=== PATIENT | male | born 1935 | race Asian ===

== ENCOUNTER 2018-09-06 15:27 | Inpatient (IN) | payer BC, MEDICAID ==
[~2018-09-06] VITALS: Ht 167.6 cm; Wt 68.5 kg
[2018-09-06] MEDS ORDERED: SODIUM CHLORIDE 0.9% 1L BAG IV* STA (15:29)
[2018-09-06] MEDS ORDERED: CEFEPIME 2GM/50 ML (PMX) 50 ML IVPB STA (15:29)
[2018-09-06] MEDS ORDERED: VANCOMYCIN 1 GM (PMX) 250 ML IVPB ONE (15:30)
[2018-09-06] MEDS ORDERED: ACETAMINOPHEN 650MG/20.3ML CUP NGT ONE (16:00)
--- NOTE | 2018-09-06 16:11 | ERD ---
ER Documentation Chief Complaint Chief Complaint PER SNF STAFF, ALOC X 3 DAYS. NORMALLY AAOX4. HPI 83-year-old male history of ventilator dependence, G-tube dependence who comes from intermediate facility for being more altered than normal. It is unknown what his actual baseline is. There is no family available. It appears that the patient has been possibly more altered from baseline for the past 48 hours per intermediate facility report. Remainder of HPI is limited. The patient is a low-grade fever and tachycardia. He is full code based on documentation provided. ROS Unable to obtain Medications Home Meds Reported Medications Acetazolamide* (Acetazolamide*) 250 Mg Tablet, 250 MG GTB BID, #60 TAB 09/06/18 Sodium Phosphate,Searcy-Dibasic (Enema Ready To Use) Unknown Strength Enema, 1 APPLIC RC Q2D, ENEMA 09/06/18 Bisacodyl (Dulcolax) 10 Mg Supp.rect, 10 MG RC DAILY, SUPP.RECT 09/06/18 Magnesium Hydroxide* (Milk Of Magnesia*) 400 Mg/5 Ml Oral.susp, 30 ML GTB DAILY, ML 09/06/18 Docusate Sodium* (Colace*) 100 Mg Capsule, 200 MG GTB DAILY, #30 CAP 09/06/18 Ferrous Sulfate* (Ferrous Sulfate*) 220 Mg/5 Ml Solution, 7.5 ML GTB DAILY, ML 09/06/18 Multivit &Minerals/Ferrous Fum (MULTIVITAMIN LIQUID) 9 Mg/15 Ml Liquid, 5 ML GTB DAILY 09/06/18 Cranberry Extract (Cranberry) 425 Mg Capsule, 425 MG GTB DAILY, CAP 09/06/18 Acetaminophen* (Acetaminophen*) 500 MG Extra Strength Tablet, 1000 MG GTB Q4H P RN for PAIN LEVEL 4-6/10, TAB 09/06/18 Acetaminophen* (Tylenol*) 325 Mg Tablet, 650 MG GTB PRN PRN for FOR TRACH TUBE CHANGE, TAB 09/06/18 Acetaminophen* (Tylenol*) 325 Mg Tablet, 650 MG GTB Q4H PRN for MILD PAIN LEVEL 1-3, TAB AND FEVER 101 AND ABOVE 09/06/18 Insulin Aspart* (Novolog Insulin Pen*) 100 Unit/Ml Soln, 0 SC .SLIDING SCALE AC, EA IF BS 150-199=1 UNIT,200-249=2 UNITS,250-299=3 UNITS,300-349=4 UNITS,349 AND >=5 UNITS AND CALL MD 09/06/18 Insulin Detemir (Levemir) 100 Unit/1 Ml Vial, 10 UNITS SQ QAM 09/06/18 Glucagon HCl (Glucagon HCl) 1 Mg Vial, 1 MG IJ NEEDED PRN for IF BS<40, VIAL 09/06/18 Ondansetron Hcl* (Zofran*) 4 Mg Tab, 4 MG GTB Q6H PRN for NAUSEA AND OR VOMITING, TAB 09/06/18 Sitagliptin* (Januvia*) 100 Mg Tablet, 100 MG GTB DAILY, #30 TAB 09/06/18 Pantoprazole* (Protonix*) 40 Mg Tablet.dr, 40 MG GTB QAM, TAB 09/06/18 Clonidine Hcl* (Clonidine Hcl*) 0.1 Mg Tab, 0.1 MG GTB Q8 PRN for FOR SBP>150, TAB 09/06/18 Metoprolol Tartrate* (Lopressor*) 50 Mg Tab, 50 MG GTB BID, #60 TAB HOLD IF SBP<110 OR HR<60 09/06/18 Atorvastatin Calcium (Atorvastatin Calcium) 10 Mg Tablet, 10 MG GTB QHS, #30 TAB 09/06/18 Prednisone* (Prednisone*) 10 Mg Tab, 10 MG GTB DAILY, TAB 09/06/18 Furosemide* (Furosemide*) 40 Mg Tablet, 40 MG GTB DAILY, TAB 09/06/18 Digoxin* (Digitek*) 125 Mcg Tablet, 0.125 MG GTB DAILY, TAB 09/06/18 Latanoprost (Xalatan) 2.5 Ml Drops, 1 DROP BOTH EYES QHS, #1 BOTTLE 09/06/18 Amlodipine Besylate* (Norvasc*) 10 Mg Tablet, 10 MG GTB DAILY, TAB HOLD IF SBP<110 OR HR<60 09/06/18 Allergies Allergies: Coded Allergies: No Known Allergy (Unverified , 09/06/18) PMhx/Soc History of Surgery: No Anesthesia Reaction: No Hx Neurological Disorder: No Hx Respiratory Disorders: Yes (COPD, TRACHEOSTOMY) Hx Cardiac Disorders: Yes (HTN) Hx Psychiatric Problems: No Hx Miscellaneous Medical Probl: Yes (CHRONIC KIDNEY DISEASE) Hx Alcohol Use: No Hx Substance Use: No Hx Tobacco Use: No Smoking Status: Never smoker Physical Exam Vitals Vital Signs Date Temp Pulse Resp B/P (MAP) Pulse Ox O2 O2 Flow FiO2 Time Delivery Rate 09/06/18 99.7 101 22 121/100 99 Trach 18:23 (107) Collar 09/06/18 100.3 101 22 121/100 99 Trach 17:49 (107) Collar 09/06/18 115 17 100 40 17:25 09/06/18 100.3 109 22 132/76 99 Trach 16:57 (94) Collar 09/06/18 100.3 16:14 09/06/18 115 23 99 40 15:41 09/06/18 100.3 115 22 102/51 99 15:39 (68) 09/06/18 100.3 115 22 102/51 99 Trach 15:39 (68) Collar Physical Exam General: No significant distress Head: Normocephalic, atraumatic. Eyes: Pupils equally reactive, EOM intact ENT: Dry mucous membranes, trach in good position Neck: Supple, no lymphadenopathy Respiratory: Upper airway sounds Cardiovascular: Tachycardia, no murmurs, rubs, or gallops Abdominal: Soft, non-tender, non-distended, no peritoneal signs : Deferred MSK: Limited movement of all 4 extremities, no bony abnormalities Neurologic: Limited exam, and encephalopathic, limited movement of all 4 extremities Skin: No rash, no significant breakdown Psych: Unable to assess Result Diagram: 09/06/18 1538 09/06/18 1537 Results 24 hrs Laboratory Tests Test 09/06/18 15:37 09/06/18 15:38 09/06/18 15:39 09/06/18 15:50 Prothrombin Time 12.2 Sec Prothrombin Time 1.0 Ratio INR International 0.89 Normalized Ratio Activated 37.3 Sec Partial Thromboplas t Time Sodium Level 138 mmol/L Potassium Level 5.1 mmol/L Chloride Level 104 mmol/L Carbon Dioxide 26 mmol/L Level Anion Gap 8 Blood Urea Nitrogen 56 mg/dl Creatinine 1.24 mg/dl Est Glomerular mL/min Filtrat Rate mL/min Glucose Level 159 mg/dl Calcium Level 8.7 mg/dl Total Bilirubin 0.3 mg/dl Direct Bilirubin 0.00 mg/dl Indirect Bilirubin 0.3 mg/dl Aspartate Amino 19 IU/L Transf (AST/SGOT) Alanine 22 IU/L Aminotransferase (A LT/SGPT) Alkaline 82 IU/L Phosphatase Troponin I 0.023 ng/ml Total Protein 7.0 g/dl Albumin 3.5 g/dl Globulin 3.50 g/dl Albumin/Globulin 1.00 Ratio White Blood Count 17.0 10^3/ul Red Blood Count 3.06 10^6/ul Hemoglobin 9.2 g/dl Hematocrit 29.4 % Mean Corpuscular 96.1 fl Volume Mean Corpuscular 30.1 pg Hemoglobin Mean Corpuscular 31.3 g/dl Hemoglobin Concent Red Cell 15.7 % Distribution Width Platelet Count 199 10^3/UL Mean Platelet 10.4 fl Volume Immature 0.800 % Granulocytes % Neutrophils % 77.8 % Lymphocytes % 10.1 % Monocytes % 9.7 % Eosinophils % 1.4 % Basophils % 0.2 % Nucleated Red Blood 0.0 /100WBC Cells % Immature 0.130 10^3/ul Granulocytes # Neutrophils # 13.2 10^3/ul Lymphocytes # 1.7 10^3/ul Monocytes # 1.7 10^3/ul Eosinophils # 0.2 10^3/ul Basophils # 0.0 10^3/ul Nucleated Red Blood 0.0 10^3/ul Cells # POC Venous Lactate 0.3 mmol/L Urine Color STRAW Urine Clarity CLEAR Urine pH 5.0 Urine Specific 1.005 [place] Urine Ketones NEGATIVE mg/dL Urine Nitrite NEGATIVE mg/dL Urine Bilirubin NEGATIVE mg/dL Urine Urobilinogen NEGATIVE mg/dL Urine Leukocyte 2+ Carrol/ul Esterase Urine Microscopic 1 /HPF RBC Urine Microscopic 12 /HPF WBC Urine Bacteria FEW /HPF Urine Yeast FEW /HPF (Budding) Urine Hemoglobin NEGATIVE mg/dL Urine Glucose NEGATIVE mg/dL Urine Total Protein NEGATIVE mg/dl Test 09/06/18 17:28 Lactic Acid Level 1.2 mmol/L Current Medications Medications Dose Sig/Malcolm Start Time Status Last (Trade) Ordered Route PRN Stop Time Admin Dose Reason Admin Sodium 2,520 ml BOLUS OVER 2 09/06/18 DC 09/06/18 Chloride HOURS STAT 15:29 09/06/18 15:55 (NS) IV* 15:31 Cefepime HCl 50 ml @ ONCE STAT 09/06/18 DC 09/06/18 100 mls/hr IVPB 15:29 09/06/18 15:56 15:58 Vancomycin 250 ml @ ONCE ONCE 09/06/18 DC 09/06/18 HCl 125 mls/hr IVPB 15:30 09/06/18 16:34 17:29 650 mg ONCE ONCE 09/06/18 DC 09/06/18 Acetaminophen NGT 16:00 09/06/18 16:14 (Tylenol 16:01 Liquid) Ondansetron 4 mg ER BRIDGE 09/06/18 HCl (Zofran PRN IV 20:00 09/07/18 Inj) NAUSEA/VOMITI 19:59 NG 650 mg ER BRIDGE 09/06/18 Acetaminophen PRN PO 20:00 09/07/18 (Tylenol .MILD PAIN 19:59 Tab) 1-3 OR TEMP Procedures/MDM EKG, MONITORS, & DIAGNOSTIC IMAGING: EKG: I reviewed and interpreted a 12-lead EKG. Rhythm: Sinus tachycardia ST Changes: No contiguous ST segment elevations T waves: No contiguous T wave inversions Impression: Sinus tachycardia Chest x-ray: I reviewed and interpreted a 1 view of the chest Mediastinum: No enlargement Cardiac silhouette: No cardiomegaly Airspace: Possible right lower lobe infiltrate Bones: No evidence of fracture CT brain: PENDING CT AP PENDING LAB INTERPRETATION: I reviewed the laboratory testing and it shows WBC elevation concerning for infection MEDICAL DECISION MAKING: Patient presents with subacute altered mental status, low-grade fever and tachycardia raising the concern for infectious process. Extremely broad differential exists but strongest concern is for possible ventilator associated pneumonia versus urinary tract infection. Patient without signs or symptoms concerning for central nervous system infection. Code sepsis was initiated. ER COURSE: * Blood cultures prior to broad-spectrum antibiotics, 30 cc/kg bolus of fluid. * Patient placed on his regular ventilator settings. * The patient's vital signs have stabilized. No indication for central line or pressors. CT imaging has been delayed because of procedure on a separate patient. * CT will be followed by the oncoming ER provider as well as the inpatient team. CONSULTATION: None DISPOSITION PLAN: Accepting care team and consultations: I discussed the current laboratory data, diagnostic imaging and emergency care provided. [facility] Admitting team indication: Insurance directed Sepsis Documentation: Patient's infectious symptoms have not stabilized and the patient is at risk of rapid decompensation. The patient will be admitted for careful hydration, antibiotic therapy, and infectious source control. SEVERE SEPSIS CRITERIA: Infectious source: Healthcare associated pneumonia End organ damage indicated by: Altered mental status SEPSIS MANAGEMENT Time of recognition of sepsis: Upon MD assessment. Time of recognition of severe sepsis: Upon MD assessment. Time of recognition of septic shock: No septic shock at this time. 3 HOUR BUNDLE Blood cultures x 2 before broad-spectrum antibiotics: Yes 30 ml/kg NS bolus completed Initial lactate less than 2 Repeat lactate pending repeat SEPTIC SHOCK ASSESSMENT: No lactic acid > 4.0 No persistent hypotension (SBP < 90 or 40 mmHg drop, MAP < 65) despite 30 mL/kg IV fluid bolus VOLUME REASSESSMENT FOR SEPTIC SHOCK: The patient does not meet criteria for septic shock in the emergency department at this time PERSISTENT HYPOTENSION TREATMENT: Comfort care no Central line not Required Vasopressor started not required I considered further perfusion assessment with CVP measurement, SCVO2, bedside ultrasound volume assessment, passive leg raise, trial of further fluid bolus. And proceeded with 30 ml/kg fluid bolus of NSS, broad spectrum antibiotics, and admission. CRITICAL CARE Critical care time 35 minutes Emergent fluid management while maintaining close respiratory support. Provision of immediate and broad-spectrum antibiotic therapy. Simultaneous assessment for possible sources in order to direct targeted therapy. Consideration for invasive and chemical support to prevent cardiopulmonary collapse. Critical care time is independent of procedures performed. Departure Diagnosis: Primary Impression: Altered level of consciousness Additional Impressions: Ventilator associated pneumonia Healthcare-associated pneumonia Severe sepsis Chronic respiratory failure Respiratory failure complication: unspecified whether with hypoxia or hypercapnia Qualified Codes: J96.10 - Chronic respiratory failure, unspecified whether with hypoxia or hypercapnia Condition: YO Aguilar MD Sep 06, 2018 16:10
[2018-09-06] MEDS ORDERED: AMLO-218 GTB (16:49)
[2018-09-06] MEDS ORDERED: LATA2.5D19 BOTH EYES (16:51)
[2018-09-06] MEDS ORDERED: FURO40TA4 GTB (16:54)
[2018-09-06] MEDS ORDERED: DIGO125T GTB (16:54)
[2018-09-06] MEDS ORDERED: PRED10TA GTB (16:55)
[2018-09-06] MEDS ORDERED: ATOR10TA65 GTB (16:56)
[2018-09-06] MEDS ORDERED: METO-429 GTB (16:57)
[2018-09-06] MEDS ORDERED: PANT40TA3 GTB (16:58)
[2018-09-06] MEDS ORDERED: CLON-379 GTB (16:58)
[2018-09-06] MEDS ORDERED: SITA100T11 GTB (16:59)
[2018-09-06] MEDS ORDERED: ONDA4TAB13 GTB (17:00)
[2018-09-06] MEDS ORDERED: GLUC1VIA6 IJ (17:01)
[2018-09-06] MEDS ORDERED: LEVEM SQ (17:02)
[2018-09-06] MEDS ORDERED: NOVO3I SC (17:05)
[2018-09-06] MEDS ORDERED: ACET-141 GTB (17:10)
[2018-09-06] MEDS ORDERED: ACET325T33 GTB ×2 (17:10)
[2018-09-06] MEDS ORDERED: CRAN425C6 GTB (17:12)
[2018-09-06] MEDS ORDERED: MULT9LIQ4 GTB (17:13)
[2018-09-06] MEDS ORDERED: FERR220S13 GTB (17:14)
[2018-09-06] MEDS ORDERED: DOCU-144 GTB (17:14)
[2018-09-06] MEDS ORDERED: MAGN400O19 GTB (17:15)
[2018-09-06] MEDS ORDERED: BISA10SU55 RC (17:16)
[2018-09-06] MEDS ORDERED: NA P133E39 RC (17:17)
[2018-09-06] MEDS ORDERED: ACET250T22 GTB (17:21)
[2018-09-06] MEDS ORDERED: ACETAMINOPHEN 325 MG TAB PO PRN (20:00)
[2018-09-06] MEDS ORDERED: ONDANSETRON 4 MG INJ IV PRN (20:00)
--- NOTE | 2018-09-06 23:50 | HP ---
Date/Time of Note Date/Time of Note DATE: 09/06/18 TIME: 23:50 Assessment/Plan VTE Prophylaxis Pharmacological prophylaxis: heparin Lines/Catheters IV Catheter Type (from Nrs): Saline Lock Assessment/Plan Assessment/Plan 1. Sepsis: Secondary to UTI -IV antibiotic, IV fluid, follow-up culture results 2. Altered mentation, likely acute on chronic encephalopathy 2/2 sepsis -Unknown baseline mental status -Head CT negative for acute findings -Treat sepsis for now -Additional head imaging as needed 3. Trach/vent dependent respiratory failure -Continue vent support -Pulmonary to manage 4. Diabetes: Insulin while in-house 5. Anemia: Likely of chronic disease -Ferritin/iron and FOBT to work-up for iron deficiency and possible GI loss Result Diagram: 09/06/18 1538 09/06/18 1537 Results 24hrs Laboratory Tests Test 09/06/18 15:37 09/06/18 15:38 09/06/18 15:39 09/06/18 15:50 Prothrombin Time 12.2 Prothrombin Time Ratio 1.0 INR International 0.89 Normalized Ratio Activated 37.3 H Partial Thromboplast Time Sodium Level 138 Potassium Level 5.1 Chloride Level 104 Carbon Dioxide Level 26 Anion Gap 8 Blood Urea Nitrogen 56 H Creatinine 1.24 Est Glomerular Filtrat Rate mL/min Glucose Level 159 Calcium Level 8.7 Total Bilirubin 0.3 Direct Bilirubin 0.00 Indirect Bilirubin 0.3 Aspartate Amino 19 Transf (AST/SGOT) Alanine 22 Aminotransferase (ALT/SG PT) Alkaline Phosphatase 82 Troponin I 0.023 Total Protein 7.0 Albumin 3.5 Globulin 3.50 H Albumin/Globulin Ratio 1.00 White Blood Count 17.0 H Red Blood Count 3.06 L Hemoglobin 9.2 L Hematocrit 29.4 L Mean Corpuscular Volume 96.1 Mean Corpuscular 30.1 Hemoglobin Mean Corpuscular 31.3 L Hemoglobin Concent Red Cell Distribution 15.7 H Width Platelet Count 199 Mean Platelet Volume 10.4 Immature Granulocytes % 0.800 H Neutrophils % 77.8 H Lymphocytes % 10.1 L Monocytes % 9.7 Eosinophils % 1.4 Basophils % 0.2 Nucleated Red Blood 0.0 Cells % Immature Granulocytes # 0.130 H Neutrophils # 13.2 H Lymphocytes # 1.7 Monocytes # 1.7 H Eosinophils # 0.2 Basophils # 0.0 Nucleated Red Blood 0.0 Cells # POC Venous Lactate 0.3 L Urine Color STRAW Urine Clarity CLEAR Urine pH 5.0 Urine Specific [place] 1.005 Urine Ketones NEGATIVE Urine Nitrite NEGATIVE Urine Bilirubin NEGATIVE Urine Urobilinogen NEGATIVE Urine Leukocyte Esterase 2+ H Urine Microscopic RBC 1 Urine Microscopic WBC 12 H Urine Bacteria FEW A Urine Yeast (Budding) FEW A Urine Hemoglobin NEGATIVE Urine Glucose NEGATIVE Urine Total Protein NEGATIVE Test 09/06/18 17:28 09/06/18 19:28 Lactic Acid Level 1.2 1.2 HPI/ROS Admit Date/Time Admit Date/Time Hx of Present Illness Patient is an 83-year-old male who is trach/vent dependent, dysphagia with G- tube, diabetes, COPD encephalopathy who was sent from facility for tachycardia and fever. Reportedly patient was also diaphoretic. Information is gathered from chart review and from the ER physician because of the patient's mental status. Not entirely sure what his baseline mental status is. When he presented to ER, he had a temp of 100.3, heart rate 115, WBC 17,000. UA consistent with UTI. Head CT negative for acute findings. PMH/Family/Social Past Medical History Past Surgical Hx: other Family History Significant Family History: no pertinent family hx Social History Alcohol Use: none Smoking Status: Never smoker Drug Use: none Exam Constitutional: other (No acute distress) Head: normocephalic, atraumatic Eyes: EOMI, PERRL Respiratory: clear to auscultation, normal air movement Cardiovascular: regular rate and rhythm Gastrointestinal: soft Extremities: normal pulses Medications Current Medications Ondansetron HCl (Zofran Inj) 4 mg ER BRIDGE PRN IV NAUSEA/VOMITING; Start 09/06/18 at 20:00; Stop 09/07/18 at 19:59 Acetaminophen (Tylenol Tab) 650 mg ER BRIDGE PRN PO .MILD PAIN 1-3 OR TEMP; Start 09/06/18 at 20:00; Stop 09/07/18 at 19:59 Coded Allergies: No Known Allergy (Unverified , 09/06/18) Social History Smoking Status: Never smoker Exam/Review of Systems Vital Signs Vitals Vital Signs Date Temp Pulse Resp B/P (MAP) Pulse Ox O2 O2 Flow FiO2 Time Delivery Rate 09/06/18 85 15 100 40 21:30 09/06/18 109/46 T Tube 20:34 (67) 09/06/18 99.7 18:23 BREONNA DC MD Sep 06, 2018 23:50
[2018-09-07] VITALS (40 sets, daily range): BP systolic 104–162; BP diastolic 33–122; PULSE 71–108; RESP 15–23; Ht 167.6 cm; Wt 68.5 kg
[2018-09-07] MEDS ORDERED: ACETAMINOPHEN 325 MG TAB GTB PRN
[2018-09-07] MEDS ORDERED: NACL 0.9% 3 ML SYG IV SCH
[2018-09-07] MEDS ORDERED: ONDANSETRON 4 MG TAB GTB PRN
[2018-09-07] MEDS ORDERED: ONDANSETRON 4 MG INJ IV PRN
[2018-09-07] MEDS ORDERED: FUROSEMIDE 40 MG TAB GTB SCH (06:00)
[2018-09-07] MEDS: LANSOPRAZOLE 30 MG CAP GTB SCH (06:06)
[2018-09-07] MEDS ORDERED: CEFTRIAXONE 1 GM/50 ML (PMX) 50 ML IVPB SCH (07:00)
[2018-09-07] MEDS: BISACODYL 10 MG SUPP PR SCH (09:00)
[2018-09-07] MEDS: MAGNESIUM HYDROXIDE 30ML CUP GTB SCH (09:00)
[2018-09-07] MEDS ORDERED: LINAGLIPTIN 5 MG TABLET GTB SCH (09:00)
[2018-09-07] MEDS ORDERED: NON-FORMULARY/PATIENT OWN MED (Sitagliptin* (Januvia*) 100 MG) GTB SCH (09:00)
--- NOTE | 2018-09-07 09:27 | CONS ---
DATE OF ADMISSION: 09/06/2018 DATE OF CONSULTATION: TYPE OF CONSULTATION: Pulmonary. REASON FOR CONSULTATION: Ventilator management. Thank you, Dr. Dc, for this consultation. HISTORY OF PRESENT ILLNESS: This is an 83-year-old gentleman with underlying history of COPD who has failed several exacerbations and pneumonia requiring tracheostomy in May of this year. He was awak e and alert post-tracheostomy at [facility]. Over the past few days has had worsening mentation and now remains largely somnolent. Transferred to [facility] for further evaluation. Currently, he remains somewhat somnolent on mechanical ventilation, not requiring vasop ressor support at present. PAST MEDICAL HISTORY: 1. Vent dependent respiratory failure. 2. Chronic obstructive pulmonary disease. 3. Dysphagia with G-tube. 4. Insulin-dependent diabetes. MEDICATIONS: Per chart. ALLERGIES: NONE. SOCIAL HISTORY: Nonsmoker, no alcohol, no history of drug use. FAMILY HISTORY: Noncontributory. SYSTEMS REVIEW: A 12-point review of systems currently unable to perform. PHYSICAL EXAMINATION: GENERAL: Elderly-appearing gentleman on mechanical ventilation via tracheostomy. VITAL SIGNS: Currently afebrile, pulse is 100, blood pressure 139/50, O2 saturation 96%, FIO2 40%. NECK: Trach site clean and intact. CARDIAC: S1, S2, no added sounds or murmurs. CHEST: Diminished air entry bilaterally, but no rales or wheezes. ABDOMEN: Soft, nontender. No guarding or rebound. EXTREMITIES: No cyanosis, clubbing or edema. NEUROLOGIC: Generalized weakness. LABORATORIES: White count initially 17, now 14.8, hemoglobin 8.7, platelets of 179. BUN 48, creatin ine 0.9. Lactic acid was 1.2. DIAGNOSTIC STUDIES: Chest x-ray showed mild pulmonary edema. Abdomen and pelvic CT showed diffuse anasarca. No obstructive uropathy G-tube in place, distended ur inary bladder, questionable retention, small pleural effusion. CT brain demonstrates no intracranial abnormalities, diffuse microvascular disease. IMPRESSION AND PLAN: Progressive encephalopathy of unclear etiology in a patient who was previously a wake, alert, and oriented. The patient will require: 1. Neuro recommendations. 2. Consider lumbar puncture to exclude BETTING CLERK infectious process. 3. Continue broad-spectrum antibiotics for UTI. 4. Vent support. 5. Terry catheter. 6. Resume tube feeding. 7. DVT and GI prophylaxis. Dictated By: BARBY GROVER MD SV/SHAWN Conf#: [id number] DID#: [id number] CC: BREONNA DC MD;*EndCC*
[2018-09-07] MEDS: FERROUS SULFATE 60 MG/ML 5ML CUP GTB SCH (09:41)
[2018-09-07] MEDS: DOCUSATE SODIUM 100 MG CAP PO SCH (09:41)
[2018-09-07] MEDS: AMLODIPINE 10 MG TAB GTB SCH (09:42)
[2018-09-07] MEDS: METOPROLOL 50 MG TAB GTB SCH ×2 (09:43→21:50)
[2018-09-07] MEDS: HEPARIN 5,000 UNIT/1 ML VIAL SC SCH ×2 (09:48→21:55)
[2018-09-07] MEDS: INSULIN GLARGINE [LANTus] (100 UNITS/ML) SYG SC SCH (09:48)
[2018-09-07] MEDS ORDERED: DEXTROSE 50% 50 ML SYRINGE IV PRN ×2 (10:00)
[2018-09-07] MEDS ORDERED: GLUCOSE GEL 15 GRAM TUBE BUCCAL PRN (10:00)
[2018-09-07] MEDS ORDERED: GLUCOSE GEL 15 GRAM TUBE PO PRN ×2 (10:00)
[2018-09-07] MEDS ORDERED: GLUCAGON 1 MG INJ IM PRN (10:00)
--- NOTE | 2018-09-07 11:24 | PN ---
Date/Time of Note Date/Time of Note DATE: 09/07/18 TIME: 11:22 Assessment/Plan VTE Prophylaxis SCD applied (from Nsg): No SCD contraindicated: other Pharmacological prophylaxis: heparin Lines/Catheters IV Catheter Type (from Nrs): Saline Lock Urinary Cath still in place: No Assessment/Plan Hospital Course S: Patient on IV fluids, seen by pulmonary team earlier, also on antibiotics. No fevers noted since yesterday evening. O: VS- see below PE: General: Lying in bed, NAD Head: Normocephalic, atraumatic. Eyes: Pupils equally reactive, EOM intact ENT: Dry mucous membranes, trach in good position Neck: Supple, trach in place Respiratory: Upper airway sounds Cardiovascular: S1, S2 heard, no rubs, or gallops Abdominal: Soft, non-tender, non-distended, no peritoneal sign MSK: Limited movement of all 4 extremities, no bony abnormalities Neurologic: limited movement of all 4 extremities Assessment/Plan: 83-year-old male who presents with: 1. Sepsis: Secondary to UTI. Fevers appear to be subsiding now, white blood cell count still elevated but trending down -For now continue broad-spectrum IV antibiotic, IV fluid, follow-up culture results 2. Altered mentation, likely acute on chronic encephalopathy 2/2 sepsis - appears to be resolving now - Unknown baseline mental status-Head CT negative for acute findings -Monitor, treat sepsis for now -Additional head imaging as needed 3. Trach/vent dependent respiratory failure -Continue vent support -Pulmonary to manage 4. Diabetes: A1c was 5.6 -Monitor, continue insulin while in-house 5. Anemia: Likely of chronic disease: Hemoglobin today 9.2 -Monitor, follow-up results of ferritin/iron and FOBT to work-up for iron deficiency and possible GI loss Critical care time the patient care today equals 45 minutes. Result Diagram: [id number]/07/1851809/[id number]/18518 Results 24hrs Laboratory Tests Test 09/06/18 15:37 09/06/18 15:38 09/06/18 15:39 09/06/18 15:50 Prothrombin Time 12.2 Prothrombin Time Ratio 1.0 INR International 0.89 Normalized Ratio Activated 37.3 H Partial Thromboplast Time Sodium Level 138 Potassium Level 5.1 Chloride Level 104 Carbon Dioxide Level 26 Anion Gap 8 Blood Urea Nitrogen 56 H Creatinine 1.24 Est Glomerular Filtrat Rate mL/min Glucose Level 159 Calcium Level 8.7 Total Bilirubin 0.3 Direct Bilirubin 0.00 Indirect Bilirubin 0.3 Aspartate Amino 19 Transf (AST/SGOT) Alanine 22 Aminotransferase (ALT/SG PT) Alkaline Phosphatase 82 Troponin I 0.023 Total Protein 7.0 Albumin 3.5 Globulin 3.50 H Albumin/Globulin Ratio 1.00 White Blood Count 17.0 H Red Blood Count 3.06 L Hemoglobin 9.2 L Hematocrit 29.4 L Mean Corpuscular Volume 96.1 Mean Corpuscular 30.1 Hemoglobin Mean Corpuscular 31.3 L Hemoglobin Concent Red Cell Distribution 15.7 H Width Platelet Count 199 Mean Platelet Volume 10.4 Immature Granulocytes % 0.800 H Neutrophils % 77.8 H Lymphocytes % 10.1 L Monocytes % 9.7 Eosinophils % 1.4 Basophils % 0.2 Nucleated Red Blood 0.0 Cells % Immature Granulocytes # 0.130 H Neutrophils # 13.2 H Lymphocytes # 1.7 Monocytes # 1.7 H Eosinophils # 0.2 Basophils # 0.0 Nucleated Red Blood 0.0 Cells # POC Venous Lactate 0.3 L Urine Color STRAW Urine Clarity CLEAR Urine pH 5.0 Urine Specific [place] 1.005 Urine Ketones NEGATIVE Urine Nitrite NEGATIVE Urine Bilirubin NEGATIVE Urine Urobilinogen NEGATIVE Urine Leukocyte Esterase 2+ H Urine Microscopic RBC 1 Urine Microscopic WBC 12 H Urine Bacteria FEW A Urine Yeast (Budding) FEW A Urine Hemoglobin NEGATIVE Urine Glucose NEGATIVE Urine Total Protein NEGATIVE Test 09/06/18 17:28 09/06/18 19:28 09/07/18 05:19 09/07/18 09:40 Lactic Acid Level 1.2 1.2 White Blood Count 14.8 H Red Blood Count 2.89 L Hemoglobin 8.7 L Hematocrit 27.8 L Mean Corpuscular Volume 96.2 Mean Corpuscular 30.1 Hemoglobin Mean Corpuscular 31.3 L Hemoglobin Concent Red Cell Distribution 15.9 H Width Platelet Count 179 Mean Platelet Volume 10.7 H Immature Granulocytes % 1.200 H Neutrophils % 72.7 Lymphocytes % 13.0 L Monocytes % 9.6 Eosinophils % 3.2 Basophils % 0.3 Nucleated Red Blood 0.0 Cells % Immature Granulocytes # 0.180 H Neutrophils # 10.8 H Lymphocytes # 1.9 Monocytes # 1.4 H Eosinophils # 0.5 Basophils # 0.1 Nucleated Red Blood 0.0 Cells # Sodium Level 144 Potassium Level 4.5 Chloride Level 114 H Carbon Dioxide Level 25 Anion Gap 5 Blood Urea Nitrogen 48 H Creatinine 0.91 Est Glomerular Filtrat Rate mL/min Glucose Level 89 # Hemoglobin A1c 5.6 Calcium Level 8.2 L Magnesium Level 2.5 Total Bilirubin 0.3 Direct Bilirubin 0.00 Indirect Bilirubin 0.3 Aspartate Amino 21 Transf (AST/SGOT) Alanine 29 Aminotransferase (ALT/SG PT) Alkaline Phosphatase 70 Total Protein 6.8 Albumin 3.1 L Globulin 3.70 H Albumin/Globulin Ratio 0.83 Triglycerides Level 195 H Cholesterol Level 106 LDL Cholesterol, 46 Calculated HDL Cholesterol 21 L Cholesterol/HDL Ratio 5.0 Thyroid Stimulating 0.824 Hormone (TSH) Bedside Glucose 95 Test 09/07/18 10:10 Urine Color YELLOW Urine Clarity TURBID A Urine pH 5.0 Urine Specific [place] 1.010 Urine Ketones NEGATIVE Urine Nitrite NEGATIVE Urine Bilirubin NEGATIVE Urine Urobilinogen NEGATIVE Urine Leukocyte Esterase 3+ H Urine Microscopic RBC 24 H Urine Microscopic WBC > 182 H Urine Squamous FEW Epithelial Cells Urine Bacteria FEW A Urine Mucus FEW A Urine Yeast (Budding) FEW A Urine Hemoglobin 1+ H Urine Glucose NEGATIVE Urine Total Protein 1+ H Exam/Review of Systems Exam Vitals Vital Signs Date Temp Pulse Resp B/P (MAP) Pulse Ox O2 O2 Flow FiO2 Time Delivery Rate 09/07/18 22 139/55 100 Mechanical 07:00 (83) Ventilator 09/07/18 102 06:30 09/07/18 40 05:00 09/07/18 99.7 01:16 Intake and Output 09/06/18 09/06/18 09/07/18 1515:00 23:00 07:00 IntakeIntake Total 50 ml BalanceBalance 50 ml Results Results 24hrs Laboratory Tests Test 09/06/18 15:37 09/06/18 15:38 09/06/18 15:39 09/06/18 15:50 Prothrombin Time 12.2 Prothrombin Time Ratio 1.0 INR International 0.89 Normalized Ratio Activated 37.3 H Partial Thromboplast Time Sodium Level 138 Potassium Level 5.1 Chloride Level 104 Carbon Dioxide Level 26 Anion Gap 8 Blood Urea Nitrogen 56 H Creatinine 1.24 Est Glomerular Filtrat Rate mL/min Glucose Level 159 Calcium Level 8.7 Total Bilirubin 0.3 Direct Bilirubin 0.00 Indirect Bilirubin 0.3 Aspartate Amino 19 Transf (AST/SGOT) Alanine 22 Aminotransferase (ALT/SG PT) Alkaline Phosphatase 82 Troponin I 0.023 Total Protein 7.0 Albumin 3.5 Globulin 3.50 H Albumin/Globulin Ratio 1.00 White Blood Count 17.0 H Red Blood Count 3.06 L Hemoglobin 9.2 L Hematocrit 29.4 L Mean Corpuscular Volume 96.1 Mean Corpuscular 30.1 Hemoglobin Mean Corpuscular 31.3 L Hemoglobin Concent Red Cell Distribution 15.7 H Width Platelet Count 199 Mean Platelet Volume 10.4 Immature Granulocytes % 0.800 H Neutrophils % 77.8 H Lymphocytes % 10.1 L Monocytes % 9.7 Eosinophils % 1.4 Basophils % 0.2 Nucleated Red Blood 0.0 Cells % Immature Granulocytes # 0.130 H Neutrophils # 13.2 H Lymphocytes # 1.7 Monocytes # 1.7 H Eosinophils # 0.2 Basophils # 0.0 Nucleated Red Blood 0.0 Cells # POC Venous Lactate 0.3 L Urine Color STRAW Urine Clarity CLEAR Urine pH 5.0 Urine Specific [place] 1.005 Urine Ketones NEGATIVE Urine Nitrite NEGATIVE Urine Bilirubin NEGATIVE Urine Urobilinogen NEGATIVE Urine Leukocyte Esterase 2+ H Urine Microscopic RBC 1 Urine Microscopic WBC 12 H Urine Bacteria FEW A Urine Yeast (Budding) FEW A Urine Hemoglobin NEGATIVE Urine Glucose NEGATIVE Urine Total Protein NEGATIVE Test 09/06/18 17:28 09/06/18 19:28 09/07/18 05:19 09/07/18 09:40 Lactic Acid Level 1.2 1.2 White Blood Count 14.8 H Red Blood Count 2.89 L Hemoglobin 8.7 L Hematocrit 27.8 L Mean Corpuscular Volume 96.2 Mean Corpuscular 30.1 Hemoglobin Mean Corpuscular 31.3 L Hemoglobin Concent Red Cell Distribution 15.9 H Width Platelet Count 179 Mean Platelet Volume 10.7 H Immature Granulocytes % 1.200 H Neutrophils % 72.7 Lymphocytes % 13.0 L Monocytes % 9.6 Eosinophils % 3.2 Basophils % 0.3 Nucleated Red Blood 0.0 Cells % Immature Granulocytes # 0.180 H Neutrophils # 10.8 H Lymphocytes # 1.9 Monocytes # 1.4 H Eosinophils # 0.5 Basophils # 0.1 Nucleated Red Blood 0.0 Cells # Sodium Level 144 Potassium Level 4.5 Chloride Level 114 H Carbon Dioxide Level 25 Anion Gap 5 Blood Urea Nitrogen 48 H Creatinine 0.91 Est Glomerular Filtrat Rate mL/min Glucose Level 89 # Hemoglobin A1c 5.6 Calcium Level 8.2 L Magnesium Level 2.5 Total Bilirubin 0.3 Direct Bilirubin 0.00 Indirect Bilirubin 0.3 Aspartate Amino 21 Transf (AST/SGOT) Alanine 29 Aminotransferase (ALT/SG PT) Alkaline Phosphatase 70 Total Protein 6.8 Albumin 3.1 L Globulin 3.70 H Albumin/Globulin Ratio 0.83 Triglycerides Level 195 H Cholesterol Level 106 LDL Cholesterol, 46 Calculated HDL Cholesterol 21 L Cholesterol/HDL Ratio 5.0 Thyroid Stimulating 0.824 Hormone (TSH) Bedside Glucose 95 Test 09/07/18 10:10 Urine Color YELLOW Urine Clarity TURBID A Urine pH 5.0 Urine Specific [place] 1.010 Urine Ketones NEGATIVE Urine Nitrite NEGATIVE Urine Bilirubin NEGATIVE Urine Urobilinogen NEGATIVE Urine Leukocyte Esterase 3+ H Urine Microscopic RBC 24 H Urine Microscopic WBC > 182 H Urine Squamous FEW Epithelial Cells Urine Bacteria FEW A Urine Mucus FEW A Urine Yeast (Budding) FEW A Urine Hemoglobin 1+ H Urine Glucose NEGATIVE Urine Total Protein 1+ H Medications Medication Current Medications IV Flush (NS 3 ml) 3 ml PER PROTOCOL IV ; Start 09/07/18 at 00:00 Ondansetron HCl (Zofran Inj) 4 mg Q6H PRN IV NAUSEA/VOMITING; Start 09/07/18 at 00:00 Heparin Sodium (Porcine) (Heparin (5000 Units/1ml)) 5,000 unit Q12 SC Last administered on 09/07/18at 09:48; Admin Dose 5,000 UNIT; Start 09/07/18 at 09:00 Acetaminophen (Tylenol Tab) 650 mg Q4H PRN GTB MILD PAIN LEVEL 1-3; Start 09/07/18 at 00:00 Amlodipine Besylate (Norvasc) 10 mg DAILY GTB Last administered on 09/07/18at 09:42; Admin Dose 10 MG; Start 09/07/18 at 09:00 Atorvastatin Calcium (Lipitor) 10 mg QHS GTB ; Start 09/07/18 at 21:00 Bisacodyl (Dulcolax Supp) 10 mg DAILY [place] ; Start 09/07/18 at 09:00 Clonidine (Catapres) 0.1 mg Q8 PRN GTB FOR SBP>150; Start 09/07/18 at 00:00 Digoxin (Digoxin) 0.125 mg DAILY@1300 GTB ; Start 09/07/18 at 13:00 Docusate Sodium (Colace) 200 mg DAILY PO Last administered on 09/07/18at 09:41; Admin Dose 200 MG; Start 09/07/18 at 09:00 Ferrous Sulfate (Feosol Liquid Cup) 330 mg DAILY GTB Last administered on 09/07/18at 09:41; Admin Dose 330 MG; Start 09/07/18 at 09:00 Insulin Glargine (Lantus) 10 units QAM SC Last administered on 09/07/18at 09:48; Admin Dose 10 UNITS; Start 09/07/18 at 09:00 Latanoprost (Xalatan) 1 drop QHS BOTH EYES ; Start 09/07/18 at 21:00 Magnesium Hydroxide (Milk Of Mag) 30 ml DAILY GTB ; Start 09/07/18 at 09:00 Metoprolol Tartrate (Lopressor) 50 mg BID GTB Last administered on 09/07/18at 09:43; Admin Dose 50 MG; Start 09/07/18 at 09:00 Ondansetron HCl (Zofran Tab) 4 mg Q6H PRN GTB NAUSEA AND/OR VOMITING; Start 09/07/18 at 00:00 Lansoprazole (Prevacid) 30 mg DAILY@06 GTB Last administered on 09/07/18at 06:06; Admin Dose 30 MG; Start 09/07/18 at 06:00 Linagliptin (Tradjenta) 5 mg DAILY GTB ; Start 09/07/18 at 09:00 Diagnostic Test (Pha) (Accu-Chek) 1 ea 02 XX ; Start 09/08/18 at 02:00 Insulin Aspart (Novolog Insulin Pen) NOVOLOG *MILD* ALGORITHM WITH MEALS BEDTIME SC ; Start 09/07/18 at 11:30 Miscellaneous Information 1 ea NOTE XX ; Start 09/07/18 at 10:00 Glucose (Glutose) 15 gm Q15M PRN PO DECREASED GLUCOSE; Start 09/07/18 at 10:00 Glucose (Glutose) 22.5 gm Q15M PRN PO DECREASED GLUCOSE; Start 09/07/18 at 10:00 Dextrose (D50w Syringe) 25 ml Q15M PRN IV DECREASED GLUCOSE; Start 09/07/18 at 10:00 Dextrose (D50w Syringe) 50 ml Q15M PRN IV DECREASED GLUCOSE; Start 09/07/18 at 10:00 Glucagon (Glucagen) 1 mg Q15M PRN IM DECREASED GLUCOSE; Start 09/07/18 at 10:00 Glucose (Glutose) 15 gm Q15M PRN BUCCAL DECREASED GLUCOSE; Start 09/07/18 at 10:00 Cefepime HCl 50 ml @ 100 mls/hr Q12 IVPB ; Start 09/07/18 at 11:30; Status UNV Sodium Chloride 1,000 ml @ 100 mls/hr Q10H IV ; Start 09/07/18 at 11:30; Status UNV BALJIT RAND Sep 07, 2018 11:24
[2018-09-07] MEDS: INSULIN ASPART [NOVOLOG] 3 ML PEN SC SCH ×3 (11:30→21:00)
[2018-09-07] MEDS: SOD CHLORIDE 0.9% 1,000 ML IV SCH ×2 (11:44→17:08)
[2018-09-07] MEDS: CEFEPIME 2GM/50 ML (PMX) 50 ML IVPB SCH ×2 (11:45→21:49)
[2018-09-07] MEDS: DIGOXIN 0.125 MG TAB GTB SCH (15:51)
[2018-09-07] MEDS: ATORVASTATIN 10 MG TAB GTB SCH (21:49)
[2018-09-07] MEDS: HYDROCORTISONE 1% 28.35 GM OINT TOP SCH (21:59)
[2018-09-08] VITALS (62 sets, daily range): BP systolic 126–171; BP diastolic 42–111; PULSE 71–107; RESP 13–28
[2018-09-08] MEDS: ACCU-CHEK XX SCH (02:00)
[2018-09-08] MEDS: LATANOPROST 0.005% 2.5 ML OPH BOTH EYES SCH (05:35)
[2018-09-08] MEDS: LANSOPRAZOLE 30 MG CAP GTB SCH (05:35)
[2018-09-08] MEDS: SOD CHLORIDE 0.9% 1,000 ML IV SCH ×2 (05:43→17:07)
[2018-09-08] MEDS: INSULIN ASPART [NOVOLOG] 3 ML PEN SC SCH ×4 (07:35→21:00)
[2018-09-08] MEDS: FERROUS SULFATE 60 MG/ML 5ML CUP GTB SCH (09:26)
[2018-09-08] MEDS: CEFEPIME 2GM/50 ML (PMX) 50 ML IVPB SCH ×2 (09:26→21:52)
[2018-09-08] MEDS: MAGNESIUM HYDROXIDE 30ML CUP GTB SCH (09:26)
[2018-09-08] MEDS: AMLODIPINE 10 MG TAB GTB SCH (09:26)
[2018-09-08] MEDS: DOCUSATE SODIUM 100 MG CAP PO SCH (09:27)
[2018-09-08] MEDS: BISACODYL 10 MG SUPP PR SCH (09:29)
[2018-09-08] MEDS: INSULIN GLARGINE [LANTus] (100 UNITS/ML) SYG SC SCH (09:31)
[2018-09-08] MEDS: HEPARIN 5,000 UNIT/1 ML VIAL SC SCH ×2 (09:31→21:53)
[2018-09-08] MEDS: HYDROCORTISONE 1% 28.35 GM OINT TOP SCH ×2 (09:32→21:54)
[2018-09-08] MEDS: METOPROLOL 50 MG TAB GTB SCH ×2 (09:58→21:51)
--- NOTE | 2018-09-08 10:27 | PN ---
Date/Time of Note Date/Time of Note DATE: 09/08/18 TIME: 10:17 Assessment/Plan VTE Prophylaxis Risk score (from Nsg)>0 risk: 11 SCD applied (from Nsg): Yes Pharmacological prophylaxis: heparin Lines/Catheters IV Catheter Type (from Nrsg): Saline Lock Urinary Cath still in place: Yes Reason Cath still needed: other (indicate) (no) Assessment/Plan Assessment/Plan 83 yo man with severe COPD, trach since May 2018, admitted with acute encephalopathy #Acute encephalopathy - May have been due to high dose benadryl the night before; or urosepsis. - According to daughter he is mentally back to baseline now #UTI - Elevated temp but afebrile since admission, leukocytosis. - Urine cultures growing GPCs. - Terry increases risk of infection and should be removed. - Continue Abx for now, pending sensitivities. # End stage COPD # Trach/vent dependent respiratory failure - Trach dependent since May 2018 due to COPD exacerbation vs pneumonia - Weaning per outpatient pharmacist's aide, although prognosis is very poor. - Palliative care should be involved. # Diabetes: A1c was 5.6 - continue insulin while in-house # Anemia: Likely of chronic disease - Had recent EGD/Colonoscopy negative for GI source of bleed. Critical care time the patient care today equals 45 minutes. Dispo[facility] pending urine culture sensitivities. Result Diagram: 09/08/18 0430 09/08/18 0430 Subjective 24 Hr Interval Summary Free Text/Dictation Spoke at length to patient's daughter. Previously, patient had advanced COPD requiring 24 hour home oxygen. In bed more than half the day. Able to do some ADLs and walk short distances with assistance. In May he had syncope and collapsed. Was treated for COPD exacerbation and was discharged to acute rehab. Hospitalized again at [facility] later in May. Intubated for a week, than got tracheostomy. Since getting trach he has never been weaned off mechanical ventilation. Since June he has been in and out of hospitals and acute rehab. Also has anemia that requires periodic blood transfusions. Got EGD+[place] that was negative for bleed. They have discussed palliative care options with family but they want to continue full care and full code. Most recently, [facility] the night prior to admission he got a high dose of Benadryl and in the morning was minimally responsive. Exam/Review of Systems Exam Vitals Vital Signs Date Temp Pulse Resp B/P (MAP) Pulse Ox O2 O2 Flow FiO2 Time Delivery Rate 09/08/18 82 16 149/51 96 Mechanical 10:00 (83) Ventilator 09/08/18 98.1 08:00 09/08/18 30 05:17 Intake and Output 09/07/18 09/07/18 09/08/18 1414:59 22:59 06:59 IntakeIntake Total 330 ml 1280 ml 710 ml OutputOutput Total 700 ml 810 ml 530 ml BalanceBalance -370 ml 470 ml 180 ml Exam General: [place] man lying in bed trached on vent; awake and alert. Head: Normocephalic, atraumatic. Eyes: Pupils equally reactive, EOM intact ENT: Moist mucous membranes. Neck: Supple, trach in place Respiratory: Mechanical breath sounds throughout, no wheezing or crackles. Cardiovascular: S1, S2 heard, no rubs, or gallops Abdominal: Soft, non-tender, non-distended, no peritoneal sign. G tube clean and dry. Neuro: Awake and alert, following complex commands. Results Results 24hrs Laboratory Tests Test 09/07/18 11:48 09/07/18 17:06 09/07/18 21:52 09/08/18 01:03 Bedside Glucose 97 101 109 104 Test 09/08/18 04:30 09/08/18 05:44 09/08/18 08:06 White Blood Count 10.2 # Red Blood Count 2.78 L Hemoglobin 8.5 L Hematocrit 26.7 L Mean Corpuscular 96.0 Volume Mean Corpuscular 30.6 Hemoglobin Mean Corpuscular 31.8 L Hemoglobin Concent Red Cell Distribution 15.6 H Width Platelet Count 186 Mean Platelet Volume 10.9 H Immature Granulocytes 1.700 H % Neutrophils % 68.2 Lymphocytes % 14.3 L Monocytes % 10.0 Eosinophils % 5.1 Basophils % 0.7 Nucleated Red Blood 0.0 Cells % Immature Granulocytes 0.170 H # Neutrophils # 6.9 Lymphocytes # 1.5 Monocytes # 1.0 H Eosinophils # 0.5 Basophils # 0.1 Nucleated Red Blood 0.0 Cells # Sodium Level 146 H Potassium Level 4.3 Chloride Level 118 H Carbon Dioxide Level 24 Anion Gap 4 L Blood Urea Nitrogen 36 #H Creatinine 0.74 Est Glomerular Filtrat Rate mL/min Glucose Level 88 Calcium Level 7.9 L Phosphorus Level 1.8 L Magnesium Level 2.3 Iron Level 34 L Total Iron Binding 186 L Capacity Percent Iron 18 L Saturation Ferritin 1190.0 H Lab Scanned Report REFERENCE LAB Bedside Glucose 107 Medications Medication Current Medications IV Flush (NS 3 ml) 3 ml PER PROTOCOL IV ; Start 09/07/18 at 00:00 Ondansetron HCl (Zofran Inj) 4 mg Q6H PRN IV NAUSEA/VOMITING; Start 09/07/18 at 00:00 Heparin Sodium (Porcine) (Heparin (5000 Units/1ml)) 5,000 unit Q12 SC Last administered on 09/08/18 09:31; Admin Dose 5,000 UNIT; Start 09/07/18 at 09:00 Acetaminophen (Tylenol Tab) 650 mg Q4H PRN GTB MILD PAIN LEVEL 1-3; Start 09/07/18 at 00:00 Amlodipine Besylate (Norvasc) 10 mg DAILY GTB Last administered on 09/08/18 09:26; Admin Dose 10 MG; Start 09/07/18 at 09:00 Atorvastatin Calcium (Lipitor) 10 mg QHS GTB Last administered on 09/07/18 21:49; Admin Dose 10 MG; Start 09/07/18 at 21:00 Bisacodyl (Dulcolax Supp) 10 mg DAILY [place] Last administered on 09/08/18 09:29; Admin Dose 10 MG; Start 09/07/18 at 09:00 Clonidine (Catapres) 0.1 mg Q8 PRN GTB FOR SBP>150; Start 09/07/18 at 00:00 Digoxin (Digoxin) 0.125 mg DAILY@1300 GTB Last administered on 09/07/18 15:51; Admin Dose 0.125 MG; Start 09/07/18 at 13:00 Docusate Sodium (Colace) 200 mg DAILY PO Last administered on 09/08/18 09:27; Admin Dose 200 MG; Start 09/07/18 at 09:00 Ferrous Sulfate (Feosol Liquid Cup) 330 mg DAILY GTB Last administered on 09/08/18 09:26; Admin Dose 330 MG; Start 09/07/18 at 09:00 Insulin Glargine (Lantus) 10 units QAM SC Last administered on 09/08/18at 09:31; Admin Dose 10 UNITS; Start 09/07/18 at 09:00 Latanoprost (Xalatan) 1 drop QHS BOTH EYES Last administered on 09/08/18at 05:35; Admin Dose 1 DROP; Start 09/07/18 at 21:00 Magnesium Hydroxide (Milk Of Mag) 30 ml DAILY GTB Last administered on 09/08/18at 09:26; Admin Dose 30 ML; Start 09/07/18 at 09:00 Metoprolol Tartrate (Lopressor) 50 mg BID GTB Last administered on 09/08/18at 09:58; Admin Dose 50 MG; Start 09/07/18 at 09:00 Ondansetron HCl (Zofran Tab) 4 mg Q6H PRN GTB NAUSEA AND/OR VOMITING; Start 09/07/18 at 00:00 Lansoprazole (Prevacid) 30 mg DAILY@06 GTB Last administered on 09/08/18at 05:35; Admin Dose 30 MG; Start 09/07/18 at 06:00 Diagnostic Test (Pha) (Accu-Chek) 1 ea 02 XX Last administered on 09/08/18at 02:00; Admin Dose 1 EA; Start 09/08/18 at 02:00 Insulin Aspart (Novolog Insulin Pen) NOVOLOG *MILD* ALGORITHM WITH MEALS BEDTIME SC ; Start 09/07/18 at 11:30 Miscellaneous Information 1 ea NOTE XX ; Start 09/07/18 at 10:00 Glucose (Glutose) 15 gm Q15M PRN PO DECREASED GLUCOSE; Start 09/07/18 at 10:00 Glucose (Glutose) 22.5 gm Q15M PRN PO DECREASED GLUCOSE; Start 09/07/18 at 10:00 Dextrose (D50w Syringe) 25 ml Q15M PRN IV DECREASED GLUCOSE; Start 09/07/18 at 10:00 Dextrose (D50w Syringe) 50 ml Q15M PRN IV DECREASED GLUCOSE; Start 09/07/18 at 10:00 Glucagon (Glucagen) 1 mg Q15M PRN IM DECREASED GLUCOSE; Start 09/07/18 at 10:00 Glucose (Glutose) 15 gm Q15M PRN BUCCAL DECREASED GLUCOSE; Start 09/07/18 at 10:00 Cefepime HCl 50 ml @ 100 mls/hr Q12 IVPB Last administered on 09/08/18 09:26; Admin Dose 100 MLS/HR; Start 09/07/18 at 11:30 Sodium Chloride 1,000 ml @ 100 mls/hr Q10H IV Last administered on 09/08/18 05:43; Admin Dose 100 MLS/HR; Start 09/07/18 at 11:30 Hydrocortisone (Hydrocortisone 1% Oint) 1 applic BID TOP Last administered on 09/08/18 09:32; Admin Dose 1 APPLIC; Start 09/07/18 at 21:00 CARLEEN MARQUEZ MD Sep 08, 2018 10:27
--- NOTE | 2018-09-08 12:07 | CONS ---
Consult Date/Type/Reason Admit Date/Time Sep 06, 2018 at 19:37 Initial Consult Date Type of Consult Pulmonary Date/Time of Note DATE: 09/08/18 TIME: 12:03 Subjective Patient stable no new events. More alert this morning. Significant output from Terry catheter yesterday. Objective Vital Signs Date Temp Pulse Resp B/P (MAP) Pulse Ox O2 O2 Flow FiO2 Time Delivery Rate 09/08/18 82 16 149/51 96 Mechanical 10:00 (83) Ventilator 09/08/18 30 08:00 09/08/18 98.1 08:00 Intake and Output 09/07/18 09/07/18 09/08/18 1515:00 23:00 07:00 IntakeIntake Total 430 ml 1310 ml 710 ml OutputOutput Total 700 ml 900 ml 515 ml BalanceBalance -270 ml 410 ml 195 ml Exam PHYSICAL EXAMINATION: GENERAL: Elderly-appearing gentleman on mechanical ventilation via tracheostomy. VITAL SIGNS: NECK: Trach site clean and intact. CARDIAC: S1, S2, no added sounds or murmurs. CHEST: Diminished air entry bilaterally, but no rales or wheezes. ABDOMEN: Soft, nontender. No guarding or rebound. EXTREMITIES: No cyanosis, clubbing or edema. NEUROLOGIC: Generalized weakness. Vent Setting Ventilator Support Mode: AC Fraction of Inspired Oxygen pe: 30 Positive End Expiratory Pressu: 5.0 Results/Medications Result Diagram: 09/08/18 0430 09/08/18 0430 Results 24 hrs Laboratory Tests Test 09/07/18 17:06 09/07/18 21:52 09/08/18 01:03 09/08/18 04:30 Bedside Glucose 101 109 104 White Blood Count 10.2 # Red Blood Count 2.78 L Hemoglobin 8.5 L Hematocrit 26.7 L Mean Corpuscular 96.0 Volume Mean Corpuscular 30.6 Hemoglobin Mean Corpuscular 31.8 L Hemoglobin Concent Red Cell Distribution 15.6 H Width Platelet Count 186 Mean Platelet Volume 10.9 H Immature Granulocytes 1.700 H % Neutrophils % 68.2 Lymphocytes % 14.3 L Monocytes % 10.0 Eosinophils % 5.1 Basophils % 0.7 Nucleated Red Blood 0.0 Cells % Immature Granulocytes 0.170 H # Neutrophils # 6.9 Lymphocytes # 1.5 Monocytes # 1.0 H Eosinophils # 0.5 Basophils # 0.1 Nucleated Red Blood 0.0 Cells # Sodium Level 146 H Potassium Level 4.3 Chloride Level 118 H Carbon Dioxide Level 24 Anion Gap 4 L Blood Urea Nitrogen 36 #H Creatinine 0.74 Est Glomerular Filtrat Rate mL/min Glucose Level 88 Calcium Level 7.9 L Phosphorus Level 1.8 L Magnesium Level 2.3 Iron Level 34 L Total Iron Binding 186 L Capacity Percent Iron 18 L Saturation Ferritin 1190.0 H Test 09/08/18 05:44 09/08/18 08:06 09/08/18 11:26 Lab Scanned Report REFERENCE LAB Bedside Glucose 107 113 Medications Current Medications IV Flush (NS 3 ml) 3 ml PER PROTOCOL IV ; Start 09/07/18 at 00:00 Ondansetron HCl (Zofran Inj) 4 mg Q6H PRN IV NAUSEA/VOMITING; Start 09/07/18 at 00:00 Heparin Sodium (Porcine) (Heparin (5000 Units/1ml)) 5,000 unit Q12 SC Last administered on 09/08/18 09:31; Admin Dose 5,000 UNIT; Start 09/07/18 at 09:00 Acetaminophen (Tylenol Tab) 650 mg Q4H PRN GTB MILD PAIN LEVEL 1-3; Start at 00:00 Amlodipine Besylate (Norvasc) 10 mg DAILY GTB Last administered on 09/08/18 09:26; Admin Dose 10 MG; Start 09/07/18 at 09:00 Atorvastatin Calcium (Lipitor) 10 mg QHS GTB Last administered on 09/07/18at 21:49; Admin Dose 10 MG; Start 09/07/18 at 21:00 Bisacodyl (Dulcolax Supp) 10 mg DAILY NV Last administered on 09/08/18 09:29; Admin Dose 10 MG; Start 09/07/18 at 09:00 Clonidine (Catapres) 0.1 mg Q8 PRN GTB FOR SBP>150; Start 09/07/18 at 00:00 Digoxin (Digoxin) 0.125 mg DAILY@1300 GTB Last administered on 09/07/18at 15:51; Admin Dose 0.125 MG; Start 09/07/18 at 13:00 Docusate Sodium (Colace) 200 mg DAILY PO Last administered on 09/08/18 09:27; Admin Dose 200 MG; Start 09/07/18 at 09:00 Ferrous Sulfate (Feosol Liquid Cup) 330 mg DAILY GTB Last administered on 09/08/18 09:26; Admin Dose 330 MG; Start 09/07/18 at 09:00 Insulin Glargine (Lantus) 10 units QAM SC Last administered on 09/08/18 09:31; Admin Dose 10 UNITS; Start 09/07/18 at 09:00 Latanoprost (Xalatan) 1 drop QHS BOTH EYES Last administered on 09/08/18 05:35; Admin Dose 1 DROP; Start 09/07/18 at 21:00 Magnesium Hydroxide (Milk Of Mag) 30 ml DAILY GTB Last administered on 09/08/18 09:26; Admin Dose 30 ML; Start 09/07/18 at 09:00 Metoprolol Tartrate (Lopressor) 50 mg BID GTB Last administered on 09/08/18 09:58; Admin Dose 50 MG; Start 09/07/18 at 09:00 Ondansetron HCl (Zofran Tab) 4 mg Q6H PRN GTB NAUSEA AND/OR VOMITING; Start 09/07/18 at 00:00 Lansoprazole (Prevacid) 30 mg DAILY@06 GTB Last administered on 09/08/18 05:35; Admin Dose 30 MG; Start 09/07/18 at 06:00 Diagnostic Test (Pha) (Accu-Chek) 1 ea 02 XX Last administered on 09/08/18at 02:00; Admin Dose 1 EA; Start 09/08/18 at 02:00 Insulin Aspart (Novolog Insulin Pen) NOVOLOG *MILD* ALGORITHM WITH MEALS BEDTIME SC ; Start 09/07/18 at 11:30 Miscellaneous Information 1 ea NOTE XX ; Start 09/07/18 at 10:00 Glucose (Glutose) 15 gm Q15M PRN PO DECREASED GLUCOSE; Start 09/07/18 at 10:00 Glucose (Glutose) 22.5 gm Q15M PRN PO DECREASED GLUCOSE; Start 09/07/18 at 10:00 Dextrose (D50w Syringe) 25 ml Q15M PRN IV DECREASED GLUCOSE; Start 09/07/18 at 10:00 Dextrose (D50w Syringe) 50 ml Q15M PRN IV DECREASED GLUCOSE; Start 09/07/18 at 10:00 Glucagon (Glucagen) 1 mg Q15M PRN IM DECREASED GLUCOSE; Start 09/07/18 at 10:00 Glucose (Glutose) 15 gm Q15M PRN BUCCAL DECREASED GLUCOSE; Start 09/07/18 at 10:00 Cefepime HCl 50 ml @ 100 mls/hr Q12 IVPB Last administered on 09/08/18at 09:26; Admin Dose 100 MLS/HR; Start 09/07/18 at 11:30 Sodium Chloride 1,000 ml @ 100 mls/hr Q10H IV Last administered on 09/08/18at 05:43; Admin Dose 100 MLS/HR; Start 09/07/18 at 11:30 Hydrocortisone (Hydrocortisone 1% Oint) 1 applic BID TOP Last administered on 09/08/18at 09:32; Admin Dose 1 APPLIC; Start 09/07/18 at 21:00 Assessment/Plan Hospital Course (Demo Recall) IMPRESSION 1. Encephalopathy likely toxic metabolic 2. Consider lumbar puncture to exclude [employer] infectious process. 3. Continue broad-spectrum antibiotics for UTI. 4. Vent support. 5. Terry catheter. 6. Resume tube feeding. 7. DVT and GI prophylaxis. Plan 1. Continue antibiotics 2. Continue tube feeding increase free water 3. Terry catheter to drainage 4. Continue mechanical ventilation [place] evaluation BARBY GROVER MD, [facility] Sep 08, 2018 12:07
[2018-09-08] MEDS: DIGOXIN 0.125 MG TAB GTB SCH (13:27)
[2018-09-08] MEDS: ATORVASTATIN 10 MG TAB GTB SCH (21:51)
[2018-09-09] VITALS (34 sets, daily range): BP systolic 146–176; BP diastolic 53–81; PULSE 74–126; RESP 15–29
[2018-09-09] MEDS: ACCU-CHEK XX SCH (02:00)
[2018-09-09] MEDS: LANSOPRAZOLE 30 MG CAP GTB SCH (05:44)
[2018-09-09] MEDS: SOD CHLORIDE 0.9% 1,000 ML IV SCH ×2 (05:45→13:38)
--- NOTE | 2018-09-09 07:31 | CONS ---
Assessment/Plan Assessment/Plan Assessment/Plan (Daily) Patient admitted with altered mental status and trached and vented since May 2018 Chronic obstructive pulmonary disease Incomplete database from [facility] unit Urosepsis Fluid and electrolyte abnormalities Type 2 diabetes My conference to establish level of care and code patient has extremely poor prognosis and likelihood of readmissions in the future is extremely high. Palliative performance status 10%. Consultation Date/Type/Reason Admit Date/Time Sep 06, 2018 at 19:37 Date/Time of Note DATE: 09/09/18 TIME: 07:27 Hx of Present Illness Chart reviewed I spoken to patient's daughter at the bedside. They are to other family members patient's and second daughter. I have explained my function is been a palliative care physician and after I have examined patient and reviewed medical records and spoken a primary care physicians I will ask director of casework to schedule a family conference. Patient is a full code. Decision- makers for the family are all 3 first-degree relatives. Acute encephalopathy secondary to urosepsis On antibiotic coverage, cognitive status improved Chronic obstructive pulmonary disease trached vent Type 2 diabetes Encephalopathy Complete database Past Medical History Medical History: diabetes, urinary tract infection Home Meds Reported Medications Acetazolamide* (Acetazolamide*) 250 Mg Tablet, 250 MG GTB BID, #60 TAB 09/06/18 Sodium Phosphate,Hickman-Dibasic (Enema Ready To Use) Unknown Strength Enema, 1 APPLIC RC Q2D, ENEMA 09/06/18 Bisacodyl (Dulcolax) 10 Mg Supp.rect, 10 MG RC DAILY, SUPP.RECT 09/06/18 Magnesium Hydroxide* (Milk Of Magnesia*) 400 Mg/5 Ml Oral.susp, 30 ML GTB DAILY, ML 09/06/18 Docusate Sodium* (Colace*) 100 Mg Capsule, 200 MG GTB DAILY, #30 CAP 09/06/18 Ferrous Sulfate* (Ferrous Sulfate*) 220 Mg/5 Ml Solution, 7.5 ML GTB DAILY, ML 09/06/18 Multivit &Minerals/Ferrous Fum (MULTIVITAMIN LIQUID) 9 Mg/15 Ml Liquid, 5 ML GTB DAILY 09/06/18 Cranberry Extract (Cranberry) 425 Mg Capsule, 425 MG GTB DAILY, CAP 09/06/18 Acetaminophen* (Acetaminophen*) 500 MG Extra Strength Tablet, 1000 MG GTB Q4H PRN for PAIN LEVEL 4-6/10, TAB 7/6/19 Acetaminophen* (Tylenol*) 325 Mg Tablet, 650 MG GTB PRN PRN for FOR TRACH TUBE CHANGE, TAB 09/06/18 Acetaminophen* (Tylenol*) 325 Mg Tablet, 650 MG GTB Q4H PRN for MILD PAIN LEVEL 1-3, TAB AND FEVER 101 AND ABOVE 09/06/18 Insulin Aspart* (Novolog Insulin Pen*) 100 Unit/Ml Soln, 0 SC .SLIDING SCALE AC, EA IF BS 150-199=1 UNIT,200-249=2 UNITS,250-299=3 UNITS,300-349=4 UNITS,349 AND >=5 UNITS AND CALL MD 09/06/18 Insulin Detemir (Levemir) 100 Unit/1 Ml Vial, 10 UNITS SQ QAM 09/06/18 Glucagon HCl (Glucagon HCl) 1 Mg Vial, 1 MG IJ NEEDED PRN for IF BS<40, VIAL 09/06/18 Ondansetron Hcl* (Zofran*) 4 Mg Tab, 4 MG GTB Q6H PRN for NAUSEA AND OR VOMITING, TAB 09/06/18 Sitagliptin* (Januvia*) 100 Mg Tablet, 100 MG GTB DAILY, #30 TAB 09/06/18 Pantoprazole* (Protonix*) 40 Mg Tablet.dr, 40 MG GTB QAM, TAB 09/06/18 Clonidine Hcl* (Clonidine Hcl*) 0.1 Mg Tab, 0.1 MG GTB Q8 PRN for FOR SBP>150, TAB 09/06/18 Metoprolol Tartrate* (Lopressor*) 50 Mg Tab, 50 MG GTB BID, #60 TAB HOLD IF SBP<110 OR HR<60 09/06/18 Atorvastatin Calcium (Atorvastatin Calcium) 10 Mg Tablet, 10 MG GTB QHS, #30 TAB 09/06/18 Prednisone* (Prednisone*) 10 Mg Tab, 10 MG GTB DAILY, TAB 09/06/18 Furosemide* (Furosemide*) 40 Mg Tablet, 40 MG GTB DAILY, TAB 09/06/18 Digoxin* (Digitek*) 125 Mcg Tablet, 0.125 MG GTB DAILY, TAB 09/06/18 Latanoprost (Xalatan) 2.5 Ml Drops, 1 DROP BOTH EYES QHS, #1 BOTTLE 09/06/18 Amlodipine Besylate* (Norvasc*) 10 Mg Tablet, 10 MG GTB DAILY, TAB HOLD IF SBP<110 OR HR<60 09/06/18 Medications Current Medications IV Flush (NS 3 ml) 3 ml PER PROTOCOL IV ; Start 09/07/18 at 00:00 Ondansetron HCl (Zofran Inj) 4 mg Q6H PRN IV NAUSEA/VOMITING; Start 09/07/18 at 00:00 Heparin Sodium (Porcine) (Heparin (5000 Units/1ml)) 5,000 unit Q12 SC Last administered on 09/08/18 21:53; Admin Dose 5,000 UNIT; Start 09/07/18 at 09:00 Acetaminophen (Tylenol Tab) 650 mg Q4H PRN GTB MILD PAIN LEVEL 1-3; Start 09/07/18 at 00:00 Amlodipine Besylate (Norvasc) 10 mg DAILY GTB Last administered on 09/08/18 09:26; Admin Dose 10 MG; Start 09/07/18 at 09:00 Atorvastatin Calcium (Lipitor) 10 mg QHS GTB Last administered on 09/08/18 21:51; Admin Dose 10 MG; Start 09/07/18 at 21:00 Bisacodyl (Dulcolax Supp) 10 mg DAILY CA Last administered on 09/08/18 09:29; Admin Dose 10 MG; Start 09/07/18 at 09:00 Clonidine (Catapres) 0.1 mg Q8 PRN GTB FOR SBP>150; Start 09/07/18 at 00:00 Digoxin (Digoxin) 0.125 mg DAILY@1300 GTB Last administered on 09/08/18 13:27; Admin Dose 0.125 MG; Start 09/07/18 at 13:00 Docusate Sodium (Colace) 200 mg DAILY PO Last administered on 09/08/18 09:27; Admin Dose 200 MG; Start 09/07/18 at 09:00 Ferrous Sulfate (Feosol Liquid Cup) 330 mg DAILY GTB Last administered on 09/08/18 09:26; Admin Dose 330 MG; Start 09/07/18 at 09:00 Insulin Glargine (Lantus) 10 units QAM SC Last administered on 09/08/18 09:31; Admin Dose 10 UNITS; Start 09/07/18 at 09:00 Latanoprost (Xalatan) 1 drop QHS BOTH EYES Last administered on 09/08/18at 05:35; Admin Dose 1 DROP; Start 09/07/18 at 21:00 Magnesium Hydroxide (Milk Of Mag) 30 ml DAILY GTB Last administered on 09/08/18at 09:26; Admin Dose 30 ML; Start 09/07/18 at 09:00 Metoprolol Tartrate (Lopressor) 50 mg BID GTB Last administered on 09/08/18at 21:51; Admin Dose 50 MG; Start 09/07/18 at 09:00 Ondansetron HCl (Zofran Tab) 4 mg Q6H PRN GTB NAUSEA AND/OR VOMITING; Start 09/07/18 at 00:00 Lansoprazole (Prevacid) 30 mg DAILY@06 GTB Last administered on 09/09/18at 05:44; Admin Dose 30 MG; Start 09/07/18 at 06:00 Diagnostic Test (Pha) (Accu-Chek) 1 ea 02 XX Last administered on 09/09/18at 02 :00; Admin Dose 1 EA; Start 09/08/18 at 02:00 Insulin Aspart (Novolog Insulin Pen) NOVOLOG *MILD* ALGORITHM WITH MEALS BEDTIME SC ; Start 09/07/18 at 11:30 Miscellaneous Information 1 ea NOTE XX ; Start 09/07/18 at 10:00 Glucose (Glutose) 15 gm Q15M PRN PO DECREASED GLUCOSE; Start 09/07/18 at 10:00 Glucose (Glutose) 22.5 gm Q15M PRN PO DECREASED GLUCOSE; Start 09/07/18 at 10:00 Dextrose (D50w Syringe) 25 ml Q15M PRN IV DECREASED GLUCOSE; Start 09/07/18 at 10:00 Dextrose (D50w Syringe) 50 ml Q15M PRN IV DECREASED GLUCOSE; Start 09/07/18 at 10:00 Glucagon (Glucagen) 1 mg Q15M PRN IM DECREASED GLUCOSE; Start 09/07/18 at 10:00 Glucose (Glutose) 15 gm Q15M PRN BUCCAL DECREASED GLUCOSE; Start 09/07/18 at 10:00 Cefepime HCl 50 ml @ 100 mls/hr Q12 IVPB Last administered on 09/08/18at 21:52; Admin Dose 100 MLS/HR; Start 09/07/18 at 11:30 Sodium Chloride 1,000 ml @ 100 mls/hr Q10H IV Last administered on 09/09/18at 05:45; Admin Dose 100 MLS/HR; Start 09/07/18 at 11:30 Hydrocortisone (Hydrocortisone 1% Oint) 1 applic BID TOP Last administered on 09/08/18at 21:54; Admin Dose 1 APPLIC; Start 09/07/18 at 21:00 Allergies: Coded Allergies: No Known Allergy (Unverified , 09/06/18) Social History Smoking Status: Never smoker Exam/Review of Systems Exam Vitals Vital Signs Date Temp Pulse Resp B/P (MAP) Pulse Ox O2 O2 Flow FiO2 Time Delivery Rate 09/09/18 82 21 166/67 99 Mechanical 06:30 (100) Ventilator 09/09/18 30 05:52 09/09/18 99.2 04:00 Intake and Output 09/08/18 09/08/18 09/09/18 1515:00 23:00 07:00 IntakeIntake Total 1150 ml 1120 ml 850 ml OutputOutput Total 600 ml 670 ml 330 ml BalanceBalance 550 ml 450 ml 520 ml Constitutional: alert, oriented, well developed Psych: anxiety Head: normocephalic, atraumatic Eyes: nl conjunctiva, EOMI, nl lids, nl sclera, PERRL; No icteric, No fundi, disc, No other ENMT: other (Trach) Neck: supple, non-tender; No jvd, No bruits, No masses, No thyromegaly, No nuchal rigidity, No other Respiratory: congested cough, crackles/rales, diminished breath sounds Cardiovascular: regular rate and rhythm, nl pulses; No bruits, No diastolic murmur, No edema, No gallop, No irregular rhythm, No jugular venous distention (JVD), No murmurs/extra sounds, No rub, No systolic murmur, No S3, No S4, No other Gastrointestinal: soft, nl liver, spleen, non-tender Genitourinary - Male: No nl penis, No nl scrotum, No CVA tenderness, No discharge, No other Musculoskeletal: No nl extremities to inspection, No nl gait and stance, No joint tenderness, No muscle tone, No muscle weakness, No range of motion, No spine non-tender, No swelling, No other Skin: nl turgor; No rash or lesions Results Result Diagram: 09/08/18 04309/08/18 0430 Results 24hrs Laboratory Tests Test 09/08/18 08:06 09/08/18 10:30 09/08/18 11:26 09/08/18 17:05 Bedside Glucose 107 113 96 Stool Occult Blood POSITIVE Test 09/08/18 21:31 09/09/18 02:04 09/09/18 06:05 Bedside Glucose 89 87 95 Medications Medication Current Medications IV Flush (NS 3 ml) 3 ml PER PROTOCOL IV ; Start 09/07/18 at 00:00 Ondansetron HCl (Zofran Inj) 4 mg Q6H PRN IV NAUSEA/VOMITING; Start 09/07/18 at 00:00 Heparin Sodium (Porcine) (Heparin (5000 Units/1ml)) 5,000 unit Q12 SC Last administered on 09/08/18at 21:53; Admin Dose 5,000 UNIT; Start 09/07/18 at 09:00 Acetaminophen (Tylenol Tab) 650 mg Q4H PRN GTB MILD PAIN LEVEL 1-3; Start 09/07/18 at 00:00 Amlodipine Besylate (Norvasc) 10 mg DAILY GTB Last administered on 09/08/18 09:26; Admin Dose 10 MG; Start 09/07/18 at 09:00 Atorvastatin Calcium (Lipitor) 10 mg QHS GTB Last administered on 09/08/18 21:51; Admin Dose 10 MG; Start 09/07/18 at 21:00 Bisacodyl (Dulcolax Supp) 10 mg DAILY CA Last administered on 09/08/18 09:29; Admin Dose 10 MG; Start 09/07/18 at 09:00 Clonidine (Catapres) 0.1 mg Q8 PRN GTB FOR SBP>150; Start 09/07/18 at 00:00 Digoxin (Digoxin) 0.125 mg DAILY@1300 GTB Last administered on 09/08/18at 13:27; Admin Dose 0.125 MG; Start 09/07/18 at 13:00 Docusate Sodium (Colace) 200 mg DAILY PO Last administered on 09/08/18 09:27; Admin Dose 200 MG; Start 09/07/18 at 09:00 Ferrous Sulfate (Feosol Liquid Cup) 330 mg DAILY GTB Last administered on 09/08/18 09:26; Admin Dose 330 MG; Start 09/07/18 at 09:00 Insulin Glargine (Lantus) 10 units QAM SC Last administered on 09/08/18at 09:31; Admin Dose 10 UNITS; Start 09/07/18 at 09:00 Latanoprost (Xalatan) 1 drop QHS BOTH EYES Last administered on 09/08/18at 05:35; Admin Dose 1 DROP; Start 09/07/18 at 21:00 Magnesium Hydroxide (Milk Of Mag) 30 ml DAILY GTB Last administered on 09/08/18at 09:26; Admin Dose 30 ML; Start 09/07/18 at 09:00 Metoprolol Tartrate (Lopressor) 50 mg BID GTB Last administered on 09/08/18at 21:51; Admin Dose 50 MG; Start 09/07/18 at 09:00 Ondansetron HCl (Zofran Tab) 4 mg Q6H PRN GTB NAUSEA AND/OR VOMITING; Start 09/07/18 at 00:00 Lansoprazole (Prevacid) 30 mg DAILY@06 GTB Last administered on 09/09/18at 05:44; Admin Dose 30 MG; Start 09/07/18 at 06:00 Diagnostic Test (Pha) (Accu-Chek) 1 ea 02 XX Last administered on 09/09/18at 02:00; Admin Dose 1 EA; Start 09/08/18 at 02:00 Insulin Aspart (Novolog Insulin Pen) NOVOLOG *MILD* ALGORITHM WITH MEALS BEDTIME SC ; Start 09/07/18 at 11:30 Miscellaneous Information 1 ea NOTE XX ; Start 09/07/18 at 10:00 Glucose (Glutose) 15 gm Q15M PRN PO DECREASED GLUCOSE; Start 09/07/18 at 10:00 Glucose (Glutose) 22.5 gm Q15M PRN PO DECREASED GLUCOSE; Start 09/07/18 at 10:00 Dextrose (D50w Syringe) 25 ml Q15M PRN IV DECREASED GLUCOSE; Start 09/07/18 at 10:00 Dextrose (D50w Syringe) 50 ml Q15M PRN IV DECREASED GLUCOSE; Start 09/07/18 at 10:00 Glucagon (Glucagen) 1 mg Q15M PRN IM DECREASED GLUCOSE; Start 09/07/18 at 10:00 Glucose (Glutose) 15 gm Q15M PRN BUCCAL DECREASED GLUCOSE; Start 09/07/18 at 10:00 Cefepime HCl 50 ml @ 100 mls/hr Q12 IVPB Last administered on 09/08/18at 21:52; Admin Dose 100 MLS/HR; Start 09/07/18 at 11:30 Sodium Chloride 1,000 ml @ 100 mls/hr Q10H IV Last administered on 09/09/18at 05:45; Admin Dose 100 MLS/HR; Start 09/07/18 at 11:30 Hydrocortisone (Hydrocortisone 1% Oint) 1 applic BID TOP Last administered on 09/08/18at 21:54; Admin Dose 1 APPLIC; Start 09/07/18 at 21:00 LOIDA OATES Sep 09, 2018 07:31
[2018-09-09] MEDS: INSULIN ASPART [NOVOLOG] 3 ML PEN SC SCH ×4 (07:35→21:00)
[2018-09-09] MEDS: METOPROLOL 50 MG TAB GTB SCH ×2 (08:44→21:18)
[2018-09-09] MEDS: FERROUS SULFATE 60 MG/ML 5ML CUP GTB SCH (08:44)
[2018-09-09] MEDS: AMLODIPINE 10 MG TAB GTB SCH (08:45)
[2018-09-09] MEDS: CEFEPIME 2GM/50 ML (PMX) 50 ML IVPB SCH ×2 (08:46→21:17)
[2018-09-09] MEDS: MAGNESIUM HYDROXIDE 30ML CUP GTB SCH (08:46)
[2018-09-09] MEDS: DOCUSATE SODIUM 100 MG CAP PO SCH (08:46)
[2018-09-09] MEDS: BISACODYL 10 MG SUPP PR SCH (08:47)
[2018-09-09] MEDS: HEPARIN 5,000 UNIT/1 ML VIAL SC SCH ×2 (08:48→21:31)
--- NOTE | 2018-09-09 08:56 | PN ---
Date/Time of Note Date/Time of Note DATE: 09/09/18 TIME: 08:49 Assessment/Plan VTE Prophylaxis Risk score (from Ns)>0 risk: 10 SCD applied (from Ns): Yes Pharmacological prophylaxis: NA/contraindicated Pharm contraindication: bleeding Lines/Catheters IV Catheter Type (from Nrsg): Peripheral IV Central line still needed: Yes Urinary Cath still in place: Yes Reason Cath still needed: other (indicate) (trached) Assessment/Plan Assessment/Plan 83 yo man with severe COPD, trach since May 2018, admitted with acute enc ephalopathy #Acute encephalopathy - May have been due to high dose benadryl the night before; or urosepsis. - According to daughter he is mentally back to baseline now #UTI - Elevated temp but afebrile since admission, leukocytosis. - Blood cultures growing GPCs; these may be contaminant as they did not grow until 48 hours after culture was drawn. - Terry increases risk of infection and should be removed. - Continue Abx for now, pending sensitivities. 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 - Palliative care should be involved. # Diabetes: A1c was 5.6 - continue insulin while in-house # Anemia: Likely of chronic disease - Had recent EGD/Colonoscopy negative for GI source of bleed. Critical care time the patient care today equals 45 minutes. Dispo: Back to [facility] pending blood culture sensitivities. Result Diagram: 09/08/1842909/08/18 043 Subjective 24 Hr Interval Summary Free Text/Dictation No acute overnight events. Patient awake, following commands. Spoke to daughter at bedside, updated her on the plan of care. Exam/Review of Systems Exam Vitals Vital Signs Date Temp Pulse Resp B/P (MAP) Pulse Ox O2 O2 Flow FiO2 Time Delivery Rate 09/09/18 78 08:00 09/09/18 21 166/67 99 Mechanical 06:30 (100) Ventilator 09/09/18 30 05:52 09/09/18 99.2 04:00 Intake and Output 09/08/18 09/08/18 09/09/18 1515:00 23:00 07:00 IntakeIntake Total 1150 ml 1120 ml 850 ml OutputOutput Total 600 ml 670 ml 330 ml BalanceBalance 550 ml 450 ml 520 ml Exam General: [place] man lying in bed trached on vent; awake and alert. Head: Normocephalic, atraumatic. Eyes: Pupils equally reactive, EOM intact ENT: Moist mucous membranes. Neck: Supple, trach in place Respiratory: Mechanical breath sounds throughout, no wheezing or crackles. Cardiovascular: S1, S2 heard, no rubs, or gallops Abdominal: Soft, non-tender, non-distended, no peritoneal sign. G tube clean and dry. Neuro: Awake and alert, following complex commands. : Terry with red urine. Results Results 24hrs Laboratory Tests Test 09/08/18 10:30 09/08/18 11:26 09/08/18 17:05 09/08/18 21:31 Stool Occult Blood POSITIVE Bedside Glucose 113 96 89 Test 09/09/18 02:04 09/09/18 06:05 Bedside Glucose 87 95 Medications Medication Current Medications IV Flush (NS 3 ml) 3 ml PER PROTOCOL IV ; Start 09/07/18 at 00:00 Ondansetron HCl (Zofran Inj) 4 mg Q6H PRN IV NAUSEA/VOMITING; Start 09/07/18 at 00:00 Heparin Sodium (Porcine) (Heparin (5000 Units/1ml)) 5,000 unit Q12 SC Last administered on 09/08/18at 21:53; Admin Dose 5,000 UNIT; Start 09/07/18 at 09:00 Acetaminophen (Tylenol Tab) 650 mg Q4H PRN GTB MILD PAIN LEVEL 1-3; Start 09/07/18 at 00:00 Amlodipine Besylate (Norvasc) 10 mg DAILY GTB Last administered on 09/09/18at 08:45; Admin Dose 10 MG; Start 09/07/18 at 09:00 Atorvastatin Calcium (Lipitor) 10 mg QHS GTB Last administered on 09/08/18at 21:5 1; Admin Dose 10 MG; Start 09/07/18 at 21:00 Bisacodyl (Dulcolax Supp) 10 mg DAILY MO Last administered on 09/08/18at 09:29; Admin Dose 10 MG; Start 09/07/18 at 09:00 Clonidine (Catapres) 0.1 mg Q8 PRN GTB FOR SBP>150; Start 09/07/18 at 00:00 Digoxin (Digoxin) 0.125 mg DAILY@1300 GTB Last administered on 09/08/18 13:27; Admin Dose 0.125 MG; Start 09/07/18 at 13:00 Docusate Sodium (Colace) 200 mg DAILY PO Last administered on 09/08/18 09:27; Admin Dose 200 MG; Start 09/07/18 at 09:00 Ferrous Sulfate (Feosol Liquid Cup) 330 mg DAILY GTB Last administered on 09/09/18 08:44; Admin Dose 330 MG; Start 09/07/18 at 09:00 Insulin Glargine (Lantus) 10 units QAM SC Last administered on 09/08/18 09:31; Admin Dose 10 UNITS; Start 09/07/18 at 09:00 Latanoprost (Xalatan) 1 drop QHS BOTH EYES Last administered on 09/08/18 05:35; Admin Dose 1 DROP; Start 09/07/18 at 21:00 Magnesium Hydroxide (Milk Of Mag) 30 ml DAILY GTB Last administered on 09/08/18 09:26; Admin Dose 30 ML; Start 09/07/18 at 09:00 Metoprolol Tartrate (Lopressor) 50 mg BID GTB Last administered on 09/09/18 08:44; Admin Dose 50 MG; Start 09/07/18 at 09:00 Ondansetron HCl (Zofran Tab) 4 mg Q6H PRN GTB NAUSEA AND/OR VOMITING; Start 09/07/18 at 00:00 Lansoprazole (Prevacid) 30 mg DAILY@06 GTB Last administered on 09/09/18 05:44; Admin Dose 30 MG; Start 09/07/18 at 06:00 Diagnostic Test (Pha) (Accu-Chek) 1 ea 02 XX Last administered on 09/09/18 02:00; Admin Dose 1 EA; Start 09/08/18 at 02:00 Insulin Aspart (Novolog Insulin Pen) NOVOLOG *MILD* ALGORITHM WITH MEALS BEDTIME SC ; Start 09/07/18 at 11:30 Miscellaneous Information 1 ea NOTE XX ; Start 09/07/18 at 10:00 Glucose (Glutose) 15 gm Q15M PRN PO DECREASED GLUCOSE; Start 09/07/18 at 10:00 Glucose (Glutose) 22.5 gm Q15M PRN PO DECREASED GLUCOSE; Start 09/07/18 at 10:00 Dextrose (D50w Syringe) 25 ml Q15M PRN IV DECREASED GLUCOSE; Start 09/07/18 at 10:00 Dextrose (D50w Syringe) 50 ml Q15M PRN IV DECREASED GLUCOSE; Start 09/07/18 at 10:00 Glucagon (Glucagen) 1 mg Q15M PRN IM DECREASED GLUCOSE; Start 09/07/18 at 10:00 Glucose (Glutose) 15 gm Q15M PRN BUCCAL DECREASED GLUCOSE; Start 09/07/18 at 10:00 Cefepime HCl 50 ml @ 100 mls/hr Q12 IVPB Last administered on 09/09/18at 08:46; Admin Dose 100 MLS/HR; Start 09/07/18 at 11:30 Sodium Chloride 1,000 ml @ 100 mls/hr Q10H IV Last administered on 09/09/18at 05:45; Admin Dose 100 MLS/HR; Start 09/07/18 at 11:30 Hydrocortisone (Hydrocortisone 1% Oint) 1 applic BID TOP Last administered on 09/08/18at 21:54; Admin Dose 1 APPLIC; Start 09/07/18 at 21:00 CARLEEN MARQUEZ MD Sep 09, 2018 08:56
--- NOTE | 2018-09-09 08:57 | CONS ---
Assessment/Plan Assessment/Plan Assessment/Plan (Daily) Ventilator setting; AC of 16, tidal volume 500, PEEP of 5, 30% FiO2. Assessment and recommendations; 1. Patient with history of VDRF admitted for gram-positive bacteremia with sepsis with interval clinical improvement. 2. Acute encephalopathy with marked overall interval improvement. 3. History of G-tube placement due to chronic dysphagia. 4. Mild CHF. 5. Anemia. 6. Mild thrombocytopenia. 7. History of glaucoma. 8. Diabetes and hypertension. Continue current supportive care. Patient responding well to current treatment regimen. Consider transfer to telemetry unit. I did have a detailed discussion with the patient's daughter at bedside and answered all her questions. Consultation Date/Type/Reason Admit Date/Time Sep 06, 2018 at 19:37 Initial Consult Date Type of Consult Pulmonary/critical care Patient condition is markedly improved. Patient is completely awake and alert. General exam; elderly male, on ventilator via tracheostomy, awake and alert. Currently in no distress. Reason for Consultation H EENT exam; supple neck, no JVD. No lymphadenopathy. Midline trachea. No thyromegaly. Tracheostomy in place. Insertion site is clean. Patient has dentures in place. Pupils are small bilaterally. Chest exam; clear to auscultation. S1-S2 audible, no murmurs. Regular rhythm. Abdomen exam; soft, no organomegaly. G-tube in place. Mildly protuberant. Bowel sounds are audible. Nontender. Extremity exam; patient has patchy ecchymosis. No peripheral edema. ROD BUSTER exam; no focal deficit. Date/Time of Note DATE: 09/09/18 TIME: 08:54 Exam/Review of Systems Exam Vitals Vital Signs Date Temp Pulse Resp B/P (MAP) Pulse Ox O2 O2 Flow FiO2 Time Delivery Rate 09/09/18 78 08:00 09/09/18 21 166/67 99 Mechanical 06:30 (100) Ventilator 09/09/18 30 05:52 09/09/18 99.2 04:00 Intake and Output 09/08/18 09/08/18 09/09/18 1515:00 23:00 07:00 IntakeIntake Total 1150 ml 1120 ml 850 ml OutputOutput Total 600 ml 670 ml 330 ml BalanceBalance 550 ml 450 ml 520 ml Results Result Diagram: 09/08/1842909/08/18 9949 Results 24hrs Laboratory Tests Test 09/08/18 10:30 09/08/18 11:26 09/08/18 17:05 09/08/18 21:31 Stool Occult Blood POSITIVE Bedside Glucose 113 96 89 Test 09/09/18 02:04 09/09/18 06:05 Bedside Glucose 87 95 Medications Medication Current Medications IV Flush (NS 3 ml) 3 ml PER PROTOCOL IV ; Start 09/07/18 at 00:00 Ondansetron HCl (Zofran Inj) 4 mg Q6H PRN IV NAUSEA/VOMITING; Start 09/07/18 at 00:00 Heparin Sodium (Porcine) (Heparin (5000 Units/1ml)) 5,000 unit Q12 SC Last administered on 09/08/18 21:53; Admin Dose 5,000 UNIT; Start 09/07/18 at 09:00 Acetaminophen (Tylenol Tab) 650 mg Q4H PRN GTB MILD PAIN LEVEL 1-3; Start 09/07/18 at 00:00 Amlodipine Besylate (Norvasc) 10 mg DAILY GTB Last administered on 09/09/18 08:45; Admin Dose 10 MG; Start 09/07/18 at 09:00 Atorvastatin Calcium (Lipitor) 10 mg QHS GTB Last administered on 09/08/18 21:51; Admin Dose 10 MG; Start 09/07/18 at 21:00 Bisacodyl (Dulcolax Supp) 10 mg DAILY SD Last administered on 09/08/18 09:29; Admin Dose 10 MG; Start 09/07/18 at 09:00; Status Hold Clonidine (Catapres) 0.1 mg Q8 PRN GTB FOR SBP>150; Start 09/07/18 at 00:00 Digoxin (Digoxin) 0.125 mg DAILY@1300 GTB Last administered on 09/08/18 13:27; Admin Dose 0.125 MG; Start 09/07/18 at 13:00 Docusate Sodium (Colace) 200 mg DAILY PO Last administered on 09/08/18 09:27; Admin Dose 200 MG; Start 09/07/18 at 09:00; Status Hold Ferrous Sulfate (Feosol Liquid Cup) 330 mg DAILY GTB Last administered on 09/09/18 08:44; Admin Dose 330 MG; Start 09/07/18 at 09:00 Insulin Glargine (Lantus) 10 units QAM SC Last administered on 09/08/18at 09:31; Admin Dose 10 UNITS; Start 09/07/18 at 09:00 Latanoprost (Xalatan) 1 drop QHS BOTH EYES Last administered on 09/08/18at 05:35; Admin Dose 1 DROP; Start 09/07/18 at 21:00 Magnesium Hydroxide (Milk Of Mag) 30 ml DAILY GTB Last administered on 09/08/18at 09:26; Admin Dose 30 ML; Start 09/07/18 at 09:00; Status Hold Metoprolol Tartrate (Lopressor) 50 mg BID GTB Last administered on 09/09/18at 08:44; Admin Dose 50 MG; Start 09/07/18 at 09:00 Ondansetron HCl (Zofran Tab) 4 mg Q6H PRN GTB NAUSEA AND/OR VOMITING; Start 09/07/18 at 00:00 Lansoprazole (Prevacid) 30 mg DAILY@06 GTB Last administered on 09/09/18at 05:44; Admin Dose 30 MG; Start 09/07/18 at 06:00 Diagnostic Test (Pha) (Accu-Chek) 1 ea 02 XX Last administered on 09/09/18at 02:00; Admin Dose 1 EA; Start 09/08/18 at 02:00 Insulin Aspart (Novolog Insulin Pen) NOVOLOG *MILD* ALGORITHM WITH MEALS BEDTIME SC ; Start 09/07/18 at 11:30 Miscellaneous Information 1 ea NOTE XX ; Start 09/07/18 at 10:00 Glucose (Glutose) 15 gm Q15M PRN PO DECREASED GLUCOSE; Start 09/07/18 at 10:00 Glucose (Glutose) 22.5 gm Q15M PRN PO DECREASED GLUCOSE; Start 09/07/18 at 10:00 Dextrose (D50w Syringe) 25 ml Q15M PRN IV DECREASED GLUCOSE; Start 09/07/18 at 10:00 Dextrose (D50w Syringe) 50 ml Q15M PRN IV DECREASED GLUCOSE; Start 09/07/18 at 10:00 Glucagon (Glucagen) 1 mg Q15M PRN IM DECREASED GLUCOSE; Start 09/07/18 at 10:00 Glucose (Glutose) 15 gm Q15M PRN BUCCAL DECREASED GLUCOSE; Start 09/07/18 at 10:00 Cefepime HCl 50 ml @ 100 mls/hr Q12 IVPB Last administered on 09/09/18at 08:46; Admin Dose 100 MLS/HR; Start 09/07/18 at 11:30 Sodium Chloride 1,000 ml @ 100 mls/hr Q10H IV Last administered on 09/09/18 05:45; Admin Dose 100 MLS/HR; Start 09/07/18 at 11:30 Hydrocortisone (Hydrocortisone 1% Oint) 1 applic BID TOP Last administered on 09/08/18at 21:54; Admin Dose 1 APPLIC; Start 09/07/18 at 21:00 HAI STAFFORD Sep 09, 2018 08:57
[2018-09-09] MEDS: HYDROCORTISONE 1% 28.35 GM OINT TOP SCH ×2 (09:00→21:19)
[2018-09-09] MEDS: LATANOPROST 0.005% 2.5 ML OPH BOTH EYES SCH ×2 (09:15→23:06)
[2018-09-09] MEDS: INSULIN GLARGINE [LANTus] (100 UNITS/ML) SYG SC SCH (09:16)
[2018-09-09] MEDS: DIGOXIN 0.125 MG TAB GTB SCH (13:43)
[2018-09-09] MEDS: ATORVASTATIN 10 MG TAB GTB SCH (21:18)
[2018-09-10] VITALS (18 sets, daily range): BP systolic 153–180; BP diastolic 65–79; PULSE 71–85; RESP 15–21
[2018-09-10] MEDS: SOD CHLORIDE 0.9% 1,000 ML IV SCH ×2 (00:20→10:08)
[2018-09-10] MEDS: ACCU-CHEK XX SCH (02:00)
[2018-09-10] MEDS: LANSOPRAZOLE 30 MG CAP GTB SCH (06:26)
[2018-09-10] MEDS: INSULIN ASPART [NOVOLOG] 3 ML PEN SC SCH ×4 (07:55→20:58)
--- NOTE | 2018-09-10 09:09 | CONS ---
Assessment/Plan Assessment/Plan Hospital Course (Demo Recall) 1) enterococcal bacteremia pt only got one dose of vanco but his WBC and fever have improved start oral zyvox until sensi's are known repeat blood cx has been ordered he does have some open shallow wounds in sacral area but no obvious cellulitis will check procalcitonin 2) [address] pl effusions get sputum cx change cefepime to zosyn and check procalcitonin no obvious bronchograms are seen on lower lobes on CT abd 3) funguria with pyuria start diflucan via g-tube and repeat u/a and urine cx sometimes bacterial infection will not be detected if pt has overgrowth of yeast 4) COPD and vent dependent 5) DM Consultation Date/Type/Reason Admit Date/Time Sep 06, 2018 at 19:37 Date of Consultation: Sep 10, 2018 Type of Consult ID Date/Time of Note DATE: 09/10/18 TIME: 09:01 Hx of Present Illness pt comes in with fever, AMS he was more somnolent but has since is more alert his fevers have improved and his WBC has normalized on one dose of vanco and on going cefepime ID consult called due to yeast in urine and GPC in blood pt denies pain anyplace, No PINEDA he follows directions but can only give limited answers to questions as he appears hard of hearing also Past Medical History Medical History: diabetes, urinary tract infection Home Meds Reported Medications Acetazolamide* (Acetazolamide*) 250 Mg Tablet, 250 MG GTB BID, #60 TAB 09/06/18 Sodium Phosphate,[place]-Dibasic (Enema Ready To Use) Unknown Strength Enema, 1 APPLIC RC Q2D, ENEMA 09/06/18 Bisacodyl (Dulcolax) 10 Mg Supp.rect, 10 MG RC DAILY, SUPP.RECT 09/06/18 Magnesium Hydroxide* (Milk Of Magnesia*) 400 Mg/5 Ml Oral.susp, 30 ML GTB DAILY, ML 09/06/18 Docusate Sodium* (Colace*) 100 Mg Capsule, 200 MG GTB DAILY, #30 CAP 09/06/18 Ferrous Sulfate* (Ferrous Sulfate*) 220 Mg/5 Ml Solution, 7.5 ML GTB DAILY, ML 09/06/18 Multivit &Minerals/Ferrous Fum (MULTIVITAMIN LIQUID) 9 Mg/15 Ml Liquid, 5 ML GTB DAILY 09/06/18 Cranberry Extract (Cranberry) 425 Mg Capsule, 425 MG GTB DAILY, CAP 09/06/18 Acetaminophen* (Acetaminophen*) 500 MG Extra Strength Tablet, 1000 MG GTB Q4H PRN for PAIN LEVEL 4-10, TAB 09/06/18 Acetaminophen* (Tylenol*) 325 Mg Tablet, 650 MG GTB PRN PRN for FOR TRACH TUBE CHANGE, TAB 09/06/18 Acetaminophen* (Tylenol*) 325 Mg Tablet, 650 MG GTB Q4H PRN for MILD PAIN LEVEL 1-3, TAB AND FEVER 101 AND ABOVE 09/06/18 Insulin Aspart* (Novolog Insulin Pen*) 100 Unit/Ml Soln, 0 SC .SLIDING SCALE AC, EA IF BS 150-199=1 UNIT,200-249=2 UNITS,250-299=3 UNITS,300-349=4 UNITS,349 AND >=5 UNITS AND CALL MD 09/06/18 Insulin Detemir (Levemir) 100 Unit/1 Ml Vial, 10 UNITS SQ QAM 09/06/18 Glucagon HCl (Glucagon HCl) 1 Mg Vial, 1 MG IJ NEEDED PRN for IF BS<40, VIAL 09/06/18 Ondansetron Hcl* (Zofran*) 4 Mg Tab, 4 MG GTB Q6H PRN for NAUSEA AND OR VOMITING, TAB 09/06/18 Sitagliptin* (Januvia*) 100 Mg Tablet, 100 MG GTB DAILY, #30 TAB 09/06/18 Pantoprazole* (Protonix*) 40 Mg Tablet.dr, 40 MG GTB QAM, TAB 09/06/18 Clonidine Hcl* (Clonidine Hcl*) 0.1 Mg Tab, 0.1 MG GTB Q8 PRN for FOR SBP>150, TAB 09/06/18 Metoprolol Tartrate* (Lopressor*) 50 Mg Tab, 50 MG GTB BID, #60 TAB HOLD IF SBP<110 OR HR<60 09/06/18 Atorvastatin Calcium (Atorvastatin Calcium) 10 Mg Tablet, 10 MG GTB QHS, #30 TAB 09/06/18 Prednisone* (Prednisone*) 10 Mg Tab, 10 MG GTB DAILY, TAB 09/06/18 Furosemide* (Furosemide*) 40 Mg Tablet, 40 MG GTB DAILY, TAB 09/06/18 Digoxin* (Digitek*) 125 Mcg Tablet, 0.125 MG GTB DAILY, TAB 09/06/18 Latanoprost (Xalatan) 2.5 Ml Drops, 1 DROP BOTH EYES QHS, #1 BOTTLE 09/06/18 Amlodipine Besylate* (Norvasc*) 10 Mg Tablet, 10 MG GTB DAILY, TAB HOLD IF SBP<110 OR HR<60 09/06/18 Medications Current Medications IV Flush (NS 3 ml) 3 ml PER PROTOCOL IV ; Start 09/07/18 at 00:00 Ondansetron HCl (Zofran Inj) 4 mg Q6H PRN IV NAUSEA/VOMITING; Start 09/07/18 at 00:00 Heparin Sodium (Porcine) (Heparin (5000 Units/1ml)) 5,000 unit Q12 SC Last administered on 09/09/18at 21:31; Admin Dose 5,000 UNIT; Start 09/07/18 at 09:00 Acetaminophen (Tylenol Tab) 650 mg Q4H PRN GTB MILD PAIN LEVEL 1-3; Start 09/07/18 at 00:00 Amlodipine Besylate (Norvasc) 10 mg DAILY GTB Last administered on 09/09/18at 08:45; Admin Dose 10 MG; Start 09/07/18 at 09:00 Atorvastatin Calcium (Lipitor) 10 mg QHS GTB Last administered on 09/09/18 21:18; Admin Dose 10 MG; Start 09/07/18 at 21:00 Bisacodyl (Dulcolax Supp) 10 mg DAILY IA Last administered on 09/08/18 09:29; Admin Dose 10 MG; Start 09/07/18 at 09:00; Status Hold Clonidine (Catapres) 0.1 mg Q8 PRN GTB FOR SBP>150 Last administered on 09/10/18 04:09; Admin Dose 0.1 MG; Start 09/07/18 at 00:00 Digoxin (Digoxin) 0.125 mg DAILY@1300 GTB Last administered on 09/09/18 13:43; Admin Dose 0.125 MG; Start 09/07/18 at 13:00 Docusate Sodium (Colace) 200 mg DAILY PO Last administered on 09/08/18 09:27; Admin Dose 200 MG; Start 09/07/18 at 09:00; Status Hold Ferrous Sulfate (Feosol Liquid Cup) 330 mg DAILY GTB Last administered on 09/09/18at 08:44; Admin Dose 330 MG; Start 09/07/18 at 09:00 Insulin Glargine (Lantus) 10 units QAM SC Last administered on 09/09/18at 09:16; Admin Dose 10 UNITS; Start 09/07/18 at 09:00 Latanoprost (Xalatan) 1 drop QHS BOTH EYES Last administered on 09/09/18at 23:06; Admin Dose 1 DROP; Start 09/07/18 at 21:00 Magnesium Hydroxide (Milk Of Mag) 30 ml DAILY GTB Last administered on 09/08/18 09:26; Admin Dose 30 ML; Start 09/07/18 at 09:00; Status Hold Metoprolol Tartrate (Lopressor) 50 mg BID GTB Last administered on 09/09/18at 21:18; Admin Dose 50 MG; Start 09/07/18 at 09:00 Ondansetron HCl (Zofran Tab) 4 mg Q6H PRN GTB NAUSEA AND/OR VOMITING; Start at 00:00 Lansoprazole (Prevacid) 30 mg DAILY@06 GTB Last administered on 09/10/18at 06:26; Admin Dose 30 MG; Start 09/07/18 at 06:00 Diagnostic Test (Pha) (Accu-Chek) 1 ea 02 XX Last administered on 09/09/18at 02:00; Admin Dose 1 EA; Start 09/08/18 at 02:00 Insulin Aspart (Novolog Insulin Pen) NOVOLOG *MILD* ALGORITHM WITH MEALS BEDTIME SC ; Start 09/07/18 at 11:30 Miscellaneous Information 1 ea NOTE XX ; Start 09/07/18 at 10:00 Glucose (Glutose) 15 gm Q15M PRN PO DECREASED GLUCOSE; Start 09/07/18 at 10:00 Glucose (Glutose) 22.5 gm Q15M PRN PO DECREASED GLUCOSE; Start 09/07/18 at 10:00 Dextrose (D50w Syringe) 25 ml Q15M PRN IV DECREASED GLUCOSE; Start 09/07/18 at 10:00 Dextrose (D50w Syringe) 50 ml Q15M PRN IV DECREASED GLUCOSE; Start 09/07/18 at 10:00 Glucagon (Glucagen) 1 mg Q15M PRN IM DECREASED GLUCOSE; Start 09/07/18 at 10:00 Glucose (Glutose) 15 gm Q15M PRN BUCCAL DECREASED GLUCOSE; Start 09/07/18 at 10:00 Cefepime HCl 50 ml @ 100 mls/hr Q12 IVPB Last administered on 09/09/18at 21:17; Admin Dose 100 MLS/HR; Start 09/07/18 at 11:30 Sodium Chloride 1,000 ml @ 100 mls/hr Q10H IV Last administered on 09/10/18at 00:20; Admin Dose 100 MLS/HR; Start 09/07/18 at 11:30 Hydrocortisone (Hydrocortisone 1% Oint) 1 applic BID TOP Last administered on 09/09/18at 21:19; Admin Dose 1 APPLIC; Start 09/07/18 at 21:00 Allergies: Coded Allergies: No Known Allergy (Unverified , 09/06/18) Social History Smoking Status: Never smoker Exam/Review of Systems Exam Vitals Vital Signs Date Temp Pulse Resp B/P (MAP) Pulse Ox O2 O2 Flow FiO2 Time Delivery Rate 09/10/18 82 16 99 30 07:45 09/10/18 98.3 168/70 Trach 07:34 (102) Collar Intake and Output 09/09/18 09/09/18 09/10/18 1414:59 22:59 06:59 IntakeIntake Total 250 ml 80 ml 1710 ml OutputOutput Total 600 ml 1000 ml BalanceBalance 250 ml -520 ml 710 ml Constitutional: alert Eyes: nl sclera ENMT: mucosa pink and moist Respiratory: clear to auscultation, other (decreased BS at bases) Cardiovascular: regular rate and rhythm Gastrointestinal: soft, non-tender Extremities: other (excoriated papules on legs, swelling to UE) Results Result Diagram: 09/08/18 0430 09/08/18 0430 Results 24hrs Laboratory Tests Test 09/09/18 09:14 09/09/18 12:57 09/09/18 18:00 09/09/18 21:16 Bedside Glucose 97 105 94 102 Test 09/10/18 08:01 Bedside Glucose 115 Medications Medication Current Medications IV Flush (NS 3 ml) 3 ml PER PROTOCOL IV ; Start 09/07/18 at 00:00 Ondansetron HCl (Zofran Inj) 4 mg Q6H PRN IV NAUSEA/VOMITING; Start 09/07/18 at 00:00 Heparin Sodium (Porcine) (Heparin (5000 Units/1ml)) 5,000 unit Q12 SC Last administered on 09/09/18 21:31; Admin Dose 5,000 UNIT; Start 09/07/18 at 09:00 Acetaminophen (Tylenol Tab) 650 mg Q4H PRN GTB MILD PAIN LEVEL 1-3; Start 09/07/18 at 00:00 Amlodipine Besylate (Norvasc) 10 mg DAILY GTB Last administered on 09/09/18 08:45; Admin Dose 10 MG; Start 09/07/18 at 09:00 Atorvastatin Calcium (Lipitor) 10 mg QHS GTB Last administered on 09/09/18 21:18; Admin Dose 10 MG; Start 09/07/18 at 21:00 Bisacodyl (Dulcolax Supp) 10 mg DAILY IA Last administered on 09/08/18 09:29; Admin Dose 10 MG; Start 09/07/18 at 09:00; Status Hold Clonidine (Catapres) 0.1 mg Q8 PRN GTB FOR SBP>150 Last administered on 09/10/18 04:09; Admin Dose 0.1 MG; Start 09/07/18 at 00:00 Digoxin (Digoxin) 0.125 mg DAILY@1300 GTB Last administered on 09/09/18 13:43; Admin Dose 0.125 MG; Start 09/07/18 at 13:00 Docusate Sodium (Colace) 200 mg DAILY PO Last administered on 09/08/18 09:27; Admin Dose 200 MG; Start 09/07/18 at 09:00; Status Hold Ferrous Sulfate (Feosol Liquid Cup) 330 mg DAILY GTB Last administered on 09/09/18 08:44; Admin Dose 330 MG; Start 09/07/18 at 09:00 Insulin Glargine (Lantus) 10 units QAM SC Last administered on 09/09/18 09:16; Admin Dose 10 UNITS; Start 09/07/18 at 09:00 Latanoprost (Xalatan) 1 drop QHS BOTH EYES Last administered on 09/09/18 23:06; Admin Dose 1 DROP; Start 09/07/18 at 21:00 Magnesium Hydroxide (Milk Of Mag) 30 ml DAILY GTB Last administered on 09/08/18at 09:26; Admin Dose 30 ML; Start 09/07/18 at 09:00; Status Hold Metoprolol Tartrate (Lopressor) 50 mg BID GTB Last administered on 09/09/18at 21:18; Admin Dose 50 MG; Start 09/07/18 at 09:00 Ondansetron HCl (Zofran Tab) 4 mg Q6H PRN GTB NAUSEA AND/OR VOMITING; Start 09/07/18 at 00:00 Lansoprazole (Prevacid) 30 mg DAILY@06 GTB Last administered on 09/10/18at 06:26; Admin Dose 30 MG; Start 09/07/18 at 06:00 Diagnostic Test (Pha) (Accu-Chek) 1 ea 02 XX Last administered on 09/09/18at 02:00; Admin Dose 1 EA; Start 09/08/18 at 02:00 Insulin Aspart (Novolog Insulin Pen) NOVOLOG *MILD* ALGORITHM WITH MEALS BEDTIME SC ; Start 09/07/18 at 11:30 Miscellaneous Information 1 ea NOTE XX ; Start 09/07/18 at 10:00 Glucose (Glutose) 15 gm Q15M PRN PO DECREASED GLUCOSE; Start 09/07/18 at 10:00 Glucose (Glutose) 22.5 gm Q15M PRN PO DECREASED GLUCOSE; Start 09/07/18 at 10:00 Dextrose (D50w Syringe) 25 ml Q15M PRN IV DECREASED GLUCOSE; Start 09/07/18 at 10:00 Dextrose (D50w Syringe) 50 ml Q15M PRN IV DECREASED GLUCOSE; Start 09/07/18 at 10:00 Glucagon (Glucagen) 1 mg Q15M PRN IM DECREASED GLUCOSE; Start 09/07/18 at 10:00 Glucose (Glutose) 15 gm Q15M PRN BUCCAL DECREASED GLUCOSE; Start 09/07/18 at 10:00 Cefepime HCl 50 ml @ 100 mls/hr Q12 IVPB Last administered on 09/09/18at 21:17; Admin Dose 100 MLS/HR; Start 09/07/18 at 11:30 Sodium Chloride 1,000 ml @ 100 mls/hr Q10H IV Last administered on 09/10/18at 00:20; Admin Dose 100 MLS/HR; Start 09/07/18 at 11:30 Hydrocortisone (Hydrocortisone 1% Oint) 1 applic BID TOP Last administered on 09/09/18at 21:19; Admin Dose 1 APPLIC; Start 09/07/18 at 21:00 BRITTANI GARCIA MD Sep 10, 2018 09:09
[2018-09-10] MEDS: ZYVOX 600 MG TAB PO SCH ×2 (09:59→20:57)
[2018-09-10] MEDS: FLUCONAZOLE 200 MG TAB GTB SCH (09:59)
[2018-09-10] MEDS: METOPROLOL 50 MG TAB GTB SCH ×2 (10:00→20:57)
[2018-09-10] MEDS: AMLODIPINE 10 MG TAB GTB SCH (10:00)
[2018-09-10] MEDS: FERROUS SULFATE 60 MG/ML 5ML CUP GTB SCH (10:01)
[2018-09-10] MEDS: HYDROCORTISONE 1% 28.35 GM OINT TOP SCH ×2 (10:08→20:56)
--- NOTE | 2018-09-10 10:45 | CONS ---
Assessment/Plan Assessment/Plan Assessment/Plan (Daily) Ventilator setting; assist control of 16, tidal volume 500, PEEP of 5, 30% FiO2. Assessment and recommendations; 1. Patient admitted with severe sepsis due to enterococcus bacteremia with marked overall clinical improvement. 2. Acute enteropathy with interval resolution. 3. VDRF. 4. Compensated CHF. 5. History of hypertension and glaucoma. Continue current supportive care. Consider discharge to custodial with continuation of antibiotics per ID recommendations. Patient also possibly may warrant a weaning trial from ventilator at custodial facility as tolerated. Consultation Date/Type/Reason Admit Date/Time Sep 06, 2018 at 19:37 Initial Consult Date Type of Consult Pulmonary/critical care Patient condition is markedly improved. Patient is completely awake and alert. General exam; elderly male, on ventilator via tracheostomy, awake and alert. Currently in no distress. Date/Time of Note DATE: 09/10/18 TIME: 10:42 24 HR Interval Summary Free Text/Dictation Patient's condition is stable. Remains awake and alert. Has remained hemodynamically stable. Transferred to telemetry unit. General exam; elderly male, on ventilator via tracheostomy, awake and alert. Currently in no distress. Exam/Review of Systems Exam Vitals Vital Signs Date Temp Pulse Resp B/P (MAP) Pulse Ox O2 O2 Flow FiO2 Time Delivery Rate 09/10/18 75 16 99 30 09:23 09/10/18 98.3 168/70 Trach 07:34 (102) Collar Intake and Output 09/09/18 09/09/18 09/10/18 1414:59 22:59 06:59 IntakeIntake Total 250 ml 80 ml 1710 ml OutputOutput Total 600 ml 1000 ml BalanceBalance 250 ml -520 ml 710 ml Exam H EENT exam; supple neck, no JVD. No lymphadenopathy. Midline trachea. No thyromegaly. Tracheostomy in place. Patient has dentures in place. No neck masses. Chest exam; clear to auscultation. S1-S2 audible, no murmurs. Regular rhythm. Abdomen exam; soft, nondistended. No organomegaly. Bowel sounds audible. G- tube in place. Extremity exam; peripheral edema clubbing. HIGH VALUE ASSOCIATE exam; no focal deficit. Results Result Diagram: 09/08/18 0430 09/10/18 0949 Results 24hrs Laboratory Tests Test 09/09/18 12:57 09/09/18 18:00 09/09/18 21:16 09/10/18 08:01 Bedside Glucose 105 94 102 115 Test 09/10/18 09:49 Sodium Level 148 H Potassium Level 4.3 Chloride Level 117 H Carbon Dioxide Level 26 Anion Gap 5 Blood Urea Nitrogen 22 H Creatinine 0.54 L Est Glomerular Filtrat Rate mL/min Glucose Level 118 Calcium Level 8.6 Phosphorus Level 1.9 L Magnesium Level 2.2 Medications Medication Current Medications IV Flush (NS 3 ml) 3 ml PER PROTOCOL IV ; Start 09/07/18 at 00:00 Ondansetron HCl (Zofran Inj) 4 mg Q6H PRN IV NAUSEA/VOMITING; Start 09/07/18 at 00:00 Heparin Sodium (Porcine) (Heparin (5000 Units/1ml)) 5,000 unit Q12 SC Last administered on 09/09/18at 21:31; Admin Dose 5,000 UNIT; Start 09/07/18 at 09:00 Acetaminophen (Tylenol Tab) 650 mg Q4H PRN GTB MILD PAIN LEVEL 1-3; Start 09/07/18 at 00:00 Amlodipine Besylate (Norvasc) 10 mg DAILY GTB Last administered on 09/09/18 08:45; Admin Dose 10 MG; Start 09/07/18 at 09:00 Atorvastatin Calcium (Lipitor) 10 mg QHS GTB Last administered on 09/09/18 21:18; Admin Dose 10 MG; Start 09/07/18 at 21:00 Bisacodyl (Dulcolax Supp) 10 mg DAILY [place] Last administered on 09/08/18 09:29; Admin Dose 10 MG; Start 09/07/18 at 09:00; Status Hold Clonidine (Catapres) 0.1 mg Q8 PRN GTB FOR SBP>150 Last administered on 09/10/18 04:09; Admin Dose 0.1 MG; Start 09/07/18 at 00:00 Digoxin (Digoxin) 0.125 mg DAILY@1300 GTB Last administered on 09/09/18 13:43; Admin Dose 0.125 MG; Start 09/07/18 at 13:00 Docusate Sodium (Colace) 200 mg DAILY PO Last administered on 09/08/18 09:27; Admin Dose 200 MG; Start 09/07/18 at 09:00; Status Hold Ferrous Sulfate (Feosol Liquid Cup) 330 mg DAILY GTB Last administered on 09/09/18at 08:44; Admin Dose 330 MG; Start 09/07/18 at 09:00 Insulin Glargine (Lantus) 10 units QAM SC Last administered on 09/09/18at 09:16; Admin Dose 10 UNITS; Start 09/07/18 at 09:00 Latanoprost (Xalatan) 1 drop QHS BOTH EYES Last administered on 09/09/18at 23:06; Admin Dose 1 DROP; Start 09/07/18 at 21:00 Magnesium Hydroxide (Milk Of Mag) 30 ml DAILY GTB Last administered on 09/08/18 09:26; Admin Dose 30 ML; Start 09/07/18 at 09:00; Status Hold Metoprolol Tartrate (Lopressor) 50 mg BID GTB Last administered on 09/09/18 21:18; Admin Dose 50 MG; Start 09/07/18 at 09:00 Ondansetron HCl (Zofran Tab) 4 mg Q6H PRN GTB NAUSEA AND/OR VOMITING; Start 09/07/18 at 00:00 Lansoprazole (Prevacid) 30 mg DAILY@06 GTB Last administered on 09/10/18at 06:26; Admin Dose 30 MG; Start 09/07/18 at 06:00 Diagnostic Test (Pha) (Accu-Chek) 1 ea 02 XX Last administered on 09/09/18at 02:00; Admin Dose 1 EA; Start 09/08/18 at 02:00 Insulin Aspart (Novolog Insulin Pen) NOVOLOG *MILD* ALGORITHM WITH MEALS B EDTIME SC ; Start 09/07/18 at 11:30 Miscellaneous Information 1 ea NOTE XX ; Start 09/07/18 at 10:00 Glucose (Glutose) 15 gm Q15M PRN PO DECREASED GLUCOSE; Start 09/07/18 at 10:00 Glucose (Glutose) 22.5 gm Q15M PRN PO DECREASED GLUCOSE; Start 09/07/18 at 10:00 Dextrose (D50w Syringe) 25 ml Q15M PRN IV DECREASED GLUCOSE; Start 09/07/18 at 10:00 Dextrose (D50w Syringe) 50 ml Q15M PRN IV DECREASED GLUCOSE; Start 09/07/18 at 10:00 Glucagon (Glucagen) 1 mg Q15M PRN IM DECREASED GLUCOSE; Start 09/07/18 at 10:00 Glucose (Glutose) 15 gm Q15M PRN BUCCAL DECREASED GLUCOSE; Start 09/07/18 at 10:00 Sodium Chloride 1,000 ml @ 100 mls/hr Q10H IV Last administered on 09/10/18at 10:08; Admin Dose 100 MLS/HR; Start 09/07/18 at 11:30 Hydrocortisone (Hydrocortisone 1% Oint) 1 applic BID TOP Last administered on 09/10/18at 10:08; Admin Dose 1 APPLIC; Start 09/07/18 at 21:00 Linezolid (Zyvox) 600 mg BID PO ; Start 09/10/18 at 09:00 Fluconazole (Diflucan) 200 mg DAILY GTB ; Start 09/10/18 at 09:00 Piperacillin Sod/ Tazobactam Sod 100 ml @ 200 mls/hr Q6 IVPB ; Start 09/10/18 at 12:00 HAI STAFFORD Sep 10, 2018 10:44
[2018-09-10] MEDS: INSULIN GLARGINE [LANTus] (100 UNITS/ML) SYG SC SCH (11:01)
[2018-09-10] MEDS: HEPARIN 5,000 UNIT/1 ML VIAL SC SCH ×2 (11:02→20:58)
--- NOTE | 2018-09-10 11:19 | PN ---
Date/Time of Note Date/Time of Note DATE: 09/10/18 TIME: 11:18 Assessment/Plan VTE Prophylaxis Risk score (from Ns)>0 risk: 5 SCD applied (from Ns): Yes Pharmacological prophylaxis: NA/contraindicated Pharm contraindication: bleeding Lines/Catheters IV Catheter Type (from Nrs): Peripheral IV Urinary Cath still in place: Yes Reason Cath still needed: other (indicate) (not needed) Assessment/Plan Assessment/Plan 83 yo man with severe COPD, trach since May 2018, admitted with acute encephalopathy #Acute encephalopathy - May have been due to high dose benadryl the night before; or urosepsis. - According to daughter he is mentally back to baseline now #UTI - Elevated temp but afebrile since admission, leukocytosis. - Blood cultures growing GPCs; these may be contaminant as they did not grow until 48 hours after culture was drawn. - Terry increases risk of infection and should be removed. - Continue Abx for now, pending sensitivities. #Hematuria - May have had Terry trauma from frequent turning - Urine clearing up, discontinue Terry. 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 - Palliative care should be involved. # Diabetes: A1c was 5.6 - continue insulin while in-house # Anemia: Likely of chronic disease - Had recent EGD/Colonoscopy negative for GI source of bleed. Dispo: Back to [facility] pending blood culture sensitivities. Result Diagram: 09/08/18 0430 09/10/18 0949 Subjective 24 Hr Interval Summary Free Text/Dictation No acute overnight events. Patient awake and alert. Exam/Review of Systems Exam Vitals Vital Signs Date Temp Pulse Resp B/P (MAP) Pulse Ox O2 O2 Flow FiO2 Time Delivery Rate 09/10/18 75 16 99 30 09:23 09/10/18 98.3 168/70 Trach 07:34 (102) Collar Intake and Output 09/09/18 09/09/18 09/10/18 1515:00 23:00 07:00 IntakeIntake Total 250 ml 80 ml 1710 ml OutputOutput Total 600 ml 1000 ml BalanceBalance 250 ml -520 ml 710 ml Exam General: [place] man lying in bed trached on vent; awake and alert. Head: Normocephalic, atraumatic. Eyes: Pupils equally reactive, EOM intact ENT: Moist mucous membranes. Neck: Supple, trach in place Respiratory: Mechanical breath sounds throughout, no wheezing or crackles. Cardiovascular: S1, S2 heard, no rubs, or gallops Abdominal: Soft, non-tender, non-distended, no peritoneal sign. G tube clean and dry. Neuro: Awake and alert, following complex commands. : Terry with yellow urine, occasional small blood clots. Results Results 24hrs Laboratory Tests Test 09/09/18 12:57 09/09/18 18:00 09/09/18 21:16 09/10/18 08:01 Bedside Glucose 105 94 102 115 Test 09/10/18 09:49 Sodium Level 148 H Potassium Level 4.3 Chloride Level 117 H Carbon Dioxide Level 26 Anion Gap 5 Blood Urea Nitrogen 22 H Creatinine 0.54 L Est Glomerular Filtrat Rate mL/min Glucose Level 118 Calcium Level 8.6 Phosphorus Level 1.9 L Magnesium Level 2.2 Medications Medication Current Medications IV Flush (NS 3 ml) 3 ml PER PROTOCOL IV ; Start 09/07/18 at 00:00 Ondansetron HCl (Zofran Inj) 4 mg Q6H PRN IV NAUSEA/VOMITING; Start 09/07/18 at 00:00 Heparin Sodium (Porcine) (Heparin (5000 Units/1ml)) 5,000 unit Q12 SC Last administered on 09/10/18at 11:02; Admin Dose 5,000 UNIT; Start 09/07/18 at 09:00 Acetaminophen (Tylenol Tab) 650 mg Q4H PRN GTB MILD PAIN LEVEL 1-3; Start 09/07/18 at 00:00 Amlodipine Besylate (Norvasc) 10 mg DAILY GTB Last administered on 09/10/18at 10:00; Admin Dose 10 MG; Start 09/07/18 at 09:00 Atorvastatin Calcium (Lipitor) 10 mg QHS GTB Last administered on 09/09/18at 21:18; Admin Dose 10 MG; Start 09/07/18 at 21:00 Bisacodyl (Dulcolax Supp) 10 mg DAILY [place] Last administered on 09/08/18 09:29; Admin Dose 10 MG; Start 09/07/18 at 09:00; Status Hold Clonidine (Catapres) 0.1 mg Q8 PRN GTB FOR SBP>150 Last administered on 09/10/18 04:09; Admin Dose 0.1 MG; Start 09/07/18 at 00:00 Digoxin (Digoxin) 0.125 mg DAILY@1300 GTB Last administered on 09/09/18 13:43; Admin Dose 0.125 MG; Start 09/07/18 at 13:00 Docusate Sodium (Colace) 200 mg DAILY PO Last administered on 09/08/18 09:27; Admin Dose 200 MG; Start 09/07/18 at 09:00; Status Hold Ferrous Sulfate (Feosol Liquid Cup) 330 mg DAILY GTB Last administered on 09/10/18 10:01; Admin Dose 330 MG; Start 09/07/18 at 09:00 Insulin Glargine (Lantus) 10 units QAM SC Last administered on 09/10/18 11:01; Admin Dose 10 UNITS; Start 09/07/18 at 09:00 Latanoprost (Xalatan) 1 drop QHS BOTH EYES Last administered on 09/09/18 23:06; Admin Dose 1 DROP; Start 09/07/18 at 21:00 Magnesium Hydroxide (Milk Of Mag) 30 ml DAILY GTB Last administered on 09/08/18 09:26; Admin Dose 30 ML; Start 09/07/18 at 09:00; Status Hold Metoprolol Tartrate (Lopressor) 50 mg BID GTB Last administered on 09/10/18 10:00; Admin Dose 50 MG; Start 09/07/18 at 09:00 Ondansetron HCl (Zofran Tab) 4 mg Q6H PRN GTB NAUSEA AND/OR VOMITING; Start 09/07/18 at 00:00 Lansoprazole (Prevacid) 30 mg DAILY@06 GTB Last administered on 09/10/18 06:26; Admin Dose 30 MG; Start 09/07/18 at 06:00 Diagnostic Test (Pha) (Accu-Chek) 1 ea 02 XX Last administered on 09/09/18 02:00; Admin Dose 1 EA; Start 09/08/18 at 02:00 Insulin Aspart (Novolog Insulin Pen) NOVOLOG *MILD* ALGORITHM WITH MEALS BEDTIME SC ; Start 09/07/18 at 11:30 Miscellaneous Information 1 ea NOTE XX ; Start 09/07/18 at 10:00 Glucose (Glutose) 15 gm Q15M PRN PO DECREASED GLUCOSE; Start 09/07/18 at 10:00 Glucose (Glutose) 22.5 gm Q15M PRN PO DECREASED GLUCOSE; Start 09/07/18 at 10:00 Dextrose (D50w Syringe) 25 ml Q15M PRN IV DECREASED GLUCOSE; Start 09/07/18 at 10:00 Dextrose (D50w Syringe) 50 ml Q15M PRN IV DECREASED GLUCOSE; Start 09/07/18 at 10:00 Glucagon (Glucagen) 1 mg Q15M PRN IM DECREASED GLUCOSE; Start 09/07/18 at 10:00 Glucose (Glutose) 15 gm Q15M PRN BUCCAL DECREASED GLUCOSE; Start 09/07/18 at 10:00 Sodium Chloride 1,000 ml @ 100 mls/hr Q10H IV Last administered on 09/10/18at 10:08; Admin Dose 100 MLS/HR; Start 09/07/18 at 11:30 Hydrocortisone (Hydrocortisone 1% Oint) 1 applic BID TOP Last administered on 09/10/18at 10:08; Admin Dose 1 APPLIC; Start 09/07/18 at 21:00 Linezolid (Zyvox) 600 mg BID PO Last administered on 09/10/18at 09:59; Admin Dose 600 MG; Start 09/10/18 at 09:00 Fluconazole (Diflucan) 200 mg DAILY GTB Last administered on 09/10/18at 09:59; Admin Dose 200 MG; Start 09/10/18 at 09:00 Piperacillin Sod/ Tazobactam Sod 100 ml @ 200 mls/hr Q6 IVPB ; Start 09/10/18 at 12:00 CARLEEN MARQUEZ MD Sep 10, 2018 11:19
[2018-09-10] MEDS: PIPER-TAZO 3.375 GM IV (PMX) 100 ML IVPB SCH ×2 (11:53→18:22)
[2018-09-10] MEDS: DIGOXIN 0.125 MG TAB GTB SCH (14:23)
[2018-09-10] MEDS: LATANOPROST 0.005% 2.5 ML OPH BOTH EYES SCH (20:56)
[2018-09-10] MEDS: ATORVASTATIN 10 MG TAB GTB SCH (20:56)
[2018-09-11] VITALS (16 sets, daily range): BP systolic 152–177; BP diastolic 67–76; PULSE 66–78; RESP 16–20
[2018-09-11] MEDS: PIPER-TAZO 3.375 GM IV (PMX) 100 ML IVPB SCH ×2 (00:22→05:13)
[2018-09-11] MEDS: ACCU-CHEK XX SCH (02:00)
[2018-09-11] MEDS: LANSOPRAZOLE 30 MG CAP GTB SCH (05:13)
--- NOTE | 2018-09-11 07:42 | CONS ---
Assessment/Plan Assessment/Plan Hospital Course (Demo Recall) 1) enterococcal bacteremia pt only got one dose of vanco but his WBC and fever have improved start oral zyvox until sensi's are known repeat blood cx has been ordered he does have some open shallow wounds in sacral area but no obvious cellulitis will check procalcitonin 09/11 - procalcitonin was neg yesterday, likely the enterococcal (not VRE) bacteremia was transient d/c zyvox and change zosyn to unasyn repeat blood cx is NGTD 2) [address] pl effusions get sputum cx change cefepime to zosyn and check procalcitonin no obvious bronchograms are seen on lower lobes on CT abd 09/11 - neg procalcitonin makes bacterial pneumonia unlikely d/c zosyn and start unasyn 3) funguria with pyuria start diflucan via g-tube and repeat u/a and urine cx sometimes bacterial infection will not be detected if pt has overgrowth of yeast 09/11 - pt has hematuria and some pyuria still on oral diflucan and if repeat urine cx is neg then will d/c diflucan, otherwise 5 day course should be sufficient 4) COPD and vent dependent 5) DM 6) anemia 09/11 - Hgb was 6.0 this a.m., likely needs repeat as pt does not have symptoms of severe anemia Consultation Date/Type/Reason Admit Date/Time Sep 06, 2018 at 19:37 Initial Consult Date 09/10/18 Type of Consult ID Date/Time of Note DATE: 09/11/18 TIME: 07:37 24 HR Interval Summary Free Text/Dictation no new problems no V, D Exam/Review of Systems Exam Vitals Vital Signs Date Temp Pulse Resp B/P (MAP) Pulse Ox O2 O2 Flow FiO2 Time Delivery Rate 09/11/18 98.3 77 18 171/74 100 07:35 (106) 09/11/18 30 05:18 09/11/18 Mechanical 04:00 Ventilator 09/10/18 8.0 13:44 Intake and Output 09/10/18 09/10/18 09/11/18 1515:00 23:00 07:00 IntakeIntake Total 150 ml 810 ml OutputOutput Total 700 ml BalanceBalance 150 ml 110 ml Constitutional: alert Eyes: nl sclera ENMT: mucosa pink and moist Respiratory: clear to auscultation Cardiovascular: regular rate and rhythm Gastrointestinal: soft, non-tender Results Result Diagram: 09/11/18 0624 09/10/18 0949 Results 24hrs Laboratory Tests Test 09/10/18 08:01 09/10/18 09:49 09/10/18 11:52 09/10/18 18:17 Bedside Glucose 115 115 104 Sodium Level 148 H Potassium Level 4.3 Chloride Level 117 H Carbon Dioxide Level 26 Anion Gap 5 Blood Urea Nitrogen 22 H Creatinine 0.54 L Est Glomerular Filtrat Rate mL/min Glucose Level 118 Calcium Level 8.6 Phosphorus Level 1.9 L Magnesium Level 2.2 Procalcitonin 0.10 Test 09/10/18 20:00 09/10/18 20:55 09/11/18 06:24 Urine Color YELLOW Urine Clarity CLOUDY A Urine pH 5.0 Urine Specific 1.016 [place] Urine Ketones NEGATIVE Urine Nitrite NEGATIVE Urine Bilirubin NEGATIVE Urine Urobilinogen NEGATIVE Urine Leukocyte NEGATIVE Esterase Urine Microscopic > 182 H RBC Urine Microscopic 19 H WBC Urine Bacteria FEW A Urine Mucus FEW A Urine Hemoglobin 3+ H Urine Glucose NEGATIVE Urine Total Protein 3+ H Bedside Glucose 96 White Blood Count 8.8 Red Blood Count 2.02 #L Hemoglobin 6.0 #*L Hematocrit 19.1 #L Mean Corpuscular 94.6 Volume Mean Corpuscular 29.7 Hemoglobin Mean Corpuscular 31.4 L Hemoglobin Concent Red Cell 15.4 H Distribution Width Platelet Count 300 # Mean Platelet Volume 11.4 H Immature 2.600 H Granulocytes % Neutrophils % Lymphocytes % Monocytes % Eosinophils % Basophils % Nucleated Red Blood 0.0 Cells % Immature 0.230 H Granulocytes # Neutrophils # Lymphocytes # Monocytes # Eosinophils # Basophils # Nucleated Red Blood Cells # Pathologist NO Review (Hematology) Medications Medication Current Medications IV Flush (NS 3 ml) 3 ml PER PROTOCOL IV ; Start 09/07/18 at 00:00 Ondansetron HCl (Zofran Inj) 4 mg Q6H PRN IV NAUSEA/VOMITING; Start 09/07/18 at 00:00 Heparin Sodium (Porcine) (Heparin (5000 Units/1ml)) 5,000 unit Q12 SC Last administered on 09/10/18at 20:58; Admin Dose 5,000 UNIT; Start 09/07/18 at 09:00 Acetaminophen (Tylenol Tab) 650 mg Q4H PRN GTB MILD PAIN LEVEL 1-3; Start 09/07/18 at 00:00 Amlodipine Besylate (Norvasc) 10 mg DAILY GTB Last administered on 09/10/18 10:00; Admin Dose 10 MG; Start 09/07/18 at 09:00 Atorvastatin Calcium (Lipitor) 10 mg QHS GTB Last administered on 09/10/18 20:56; Admin Dose 10 MG; Start 09/07/18 at 21:00 Bisacodyl (Dulcolax Supp) 10 mg DAILY [place] Last administered on 09/08/18 09:29; Admin Dose 10 MG; Start 09/07/18 at 09:00; Status Hold Clonidine (Catapres) 0.1 mg Q8 PRN GTB FOR SBP>150 Last administered on 09/11/18 04:13; Admin Dose 0.1 MG; Start 09/07/18 at 00:00 Digoxin (Digoxin) 0.125 mg DAILY@1300 GTB Last administered on 09/10/18 14:23; Admin Dose 0.125 MG; Start 09/07/18 at 13:00 Docusate Sodium (Colace) 200 mg DAILY PO Last administered on 09/08/18 09:27; Admin Dose 200 MG; Start 09/07/18 at 09:00; Status Hold Ferrous Sulfate (Feosol Liquid Cup) 330 mg DAILY GTB Last administered on 09/10/18 10:01; Admin Dose 330 MG; Start 09/07/18 at 09:00 Insulin Glargine (Lantus) 10 units QAM SC Last administered on 09/10/18 11:01; Admin Dose 10 UNITS; Start 09/07/18 at 09:00 Latanoprost (Xalatan) 1 drop QHS BOTH EYES Last administered on 09/10/18 20:56; Admin Dose 1 DROP; Start 09/07/18 at 21:00 Magnesium Hydroxide (Milk Of Mag) 30 ml DAILY GTB Last administered on 09/08/18 09:26; Admin Dose 30 ML; Start 09/07/18 at 09:00; Status Hold Metoprolol Tartrate (Lopressor) 50 mg BID GTB Last administered on 09/10/18 20:57; Admin Dose 50 MG; Start 09/07/18 at 09:00 Ondansetron HCl (Zofran Tab) 4 mg Q6H PRN GTB NAUSEA AND/OR VOMITING; Start 09/07/18 at 00:00 Lansoprazole (Prevacid) 30 mg DAILY@06 GTB Last administered on 09/11/18at 05:13; Admin Dose 30 MG; Start 09/07/18 at 06:00 Diagnostic Test (Pha) (Accu-Chek) 1 ea 02 XX Last administered on 09/09/18at 02:00; Admin Dose 1 EA; Start 09/08/18 at 02:00 Insulin Aspart (Novolog Insulin Pen) NOVOLOG *MILD* ALGORITHM WITH MEALS BE DTIME SC ; Start 09/07/18 at 11:30 Miscellaneous Information 1 ea NOTE XX ; Start 09/07/18 at 10:00 Glucose (Glutose) 15 gm Q15M PRN PO DECREASED GLUCOSE; Start 09/07/18 at 10:00 Glucose (Glutose) 22.5 gm Q15M PRN PO DECREASED GLUCOSE; Start 09/07/18 at 10:00 Dextrose (D50w Syringe) 25 ml Q15M PRN IV DECREASED GLUCOSE; Start 09/07/18 at 10:00 Dextrose (D50w Syringe) 50 ml Q15M PRN IV DECREASED GLUCOSE; Start 09/07/18 at 10:00 Glucagon (Glucagen) 1 mg Q15M PRN IM DECREASED GLUCOSE; Start 09/07/18 at 10:00 Glucose (Glutose) 15 gm Q15M PRN BUCCAL DECREASED GLUCOSE; Start 09/07/18 at 10:00 Hydrocortisone (Hydrocortisone 1% Oint) 1 applic BID TOP Last administered on 09/10/18at 20:56; Admin Dose 1 APPLIC; Start 09/07/18 at 21:00 Fluconazole (Diflucan) 200 mg DAILY GTB Last administered on 09/10/18at 09:59; Admin Dose 200 MG; Start 09/10/18 at 09:00 Piperacillin Sod/ Tazobactam Sod 100 ml @ 200 mls/hr Q6 IVPB Last administered on 09/11/18at 05:13; Admin Dose 200 MLS/HR; Start 09/10/18 at 12:00 BRITTANI GARCIA MD Sep 11, 2018 07:42
[2018-09-11] MEDS: INSULIN ASPART [NOVOLOG] 3 ML PEN SC SCH (07:55)
[2018-09-11] MEDS: HEPARIN 5,000 UNIT/1 ML VIAL SC SCH (08:07)
[2018-09-11] MEDS: HYDROCORTISONE 1% 28.35 GM OINT TOP SCH ×2 (08:26→20:20)
[2018-09-11] MEDS: METOPROLOL 50 MG TAB GTB SCH ×2 (08:27→20:19)
[2018-09-11] MEDS: FLUCONAZOLE 200 MG TAB GTB SCH (08:27)
[2018-09-11] MEDS: AMLODIPINE 10 MG TAB GTB SCH (08:27)
[2018-09-11] MEDS: FERROUS SULFATE 60 MG/ML 5ML CUP GTB SCH (08:28)
[2018-09-11] MEDS: INSULIN GLARGINE [LANTus] (100 UNITS/ML) SYG SC SCH (08:37)
[2018-09-11] MEDS ORDERED: POTASSIUM PHOSPHATE 30 MM in SOD CHLORIDE 0.9% 250 ML IVPB ONE (10:30)
--- NOTE | 2018-09-11 10:52 | CONS ---
Assessment/Plan Assessment/Plan Assessment/Plan (Daily) Ventilator setting; noted. Assessment and recommendations; 1. Patient with history of VDRF admitted for enterococcus bacteremia with significant clinical improvement. Currently on appropriate antimicrobial regimen. Most recent blood cultures however are negative now. 2. Acute enteropathy with marked interval resolution. 3. Severe anemia. 4. Hypertension. 5. History of glaucoma. 6. Clinically compensated CHF. 7. Diabetes. Continue current supportive care. Transfuse packed RBCs. Patient likely will need GI work-up done for evaluation of anemia. Antibiotics per ID recommendations. Consultation Date/Type/Reason Admit Date/Time Sep 06, 2018 at 19:37 Initial Consult Date Type of Consult Pulmonary/critical care Patient condition is markedly improved. Patient is completely awake and alert. General exam; elderly male, on ventilator via tracheostomy, awake and alert. Currently in no distress. Date/Time of Note DATE: 09/11/18 TIME: 10:50 24 HR Interval Summary Free Text/Dictation Patient's condition is stable. Has remained hemodynamically stable. General exam; elderly male, on ventilator via tracheostomy, currently in no distress. Awake and alert. Exam/Review of Systems Exam Vitals Vital Signs Date Temp Pulse Resp B/P (MAP) Pulse Ox O2 O2 Flow FiO2 Time Delivery Rate 09/11/18 98.3 77 18 171/74 100 07:35 (106) 09/11/18 30 05:18 09/11/18 Mechanical 04:00 Ventilator 09/10/18 8.0 13:44 Intake and Output 09/10/18 09/10/18 09/11/18 1515:00 23:00 07:00 IntakeIntake Total 150 ml 810 ml OutputOutput Total 700 ml BalanceBalance 150 ml 110 ml Exam H EENT exam; supple neck, no JVD. No lymphadenopathy. Midline trachea. No thyromegaly. Tracheostomy in place. Chest exam; clear to auscultation. S1-S2 audible, no murmurs. Regular rhythm. Abdomen exam; soft, no organomegaly. G-tube in place. Protuberant. Bowel sounds are audible. Extremity exam; no peripheral edema. SERVICE DEVELOPER exam; no focal deficit. Results Result Diagram: 09/11/18 0624 09/11/18 0624 Results 24hrs Laboratory Tests Test 09/10/18 11:52 09/10/18 18:17 09/10/18 20:00 09/10/18 20:55 Bedside Glucose 115 104 96 Urine Color YELLOW Urine Clarity CLOUDY A Urine pH 5.0 Urine Specific 1.016 [place] Urine Ketones NEGATIVE Urine Nitrite NEGATIVE Urine Bilirubin NEGATIVE Urine Urobilinogen NEGATIVE Urine Leukocyte NEGATIVE Esterase Urine Microscopic > 182 H RBC Urine Microscopic 19 H WBC Urine Bacteria FEW A Urine Mucus FEW A Urine Hemoglobin 3+ H Urine Glucose NEGATIVE Urine Total Protein 3+ H Test 09/11/18 06:24 09/11/18 07:56 White Blood Count 8.8 Red Blood Count 2.02 #L Hemoglobin 6.0 #*L Hematocrit 19.1 #L Mean Corpuscular 94.6 Volume Mean Corpuscular 29.7 Hemoglobin Mean Corpuscular 31.4 L Hemoglobin Concent Red Cell 15.4 H Distribution Width Platelet Count 300 # Mean Platelet Volume 11.4 H Immature 2.600 H Granulocytes % Neutrophils % Segmented 73 Neutrophils % (Manual) Band Neutrophils % 4 (Manual) Lymphocytes % Lymphocytes % 7 L (Manual) Monocytes % Monocytes % (Manual) 10 Eosinophils % Eosinophils % 1 (Manual) Basophils % Basophils % (Manual) 1 Metamyelocytes % 1 H (manual) Myelocytes % 2 H (Manual) Promyelocytes % 1 H (Manual) Nucleated Red Blood 0.0 Cells % Immature 0.230 H Granulocytes # Neutrophils # Neutrophils # 6.5 (Manual) Band Neutrophils # 0.3 Lymphocytes (Manual) 0.6 L Lymphocytes # Monocytes # Monocytes # (Manual) 0.8 Eosinophils # Basophils # Basophils # (Manual) 0.0 Metamyelocytes # 0.0 Myelocytes # 0.1 H Promyelocytes # 0.0 Nucleated Red Blood Cells # Pathologist NO Review (Hematology) Platelet Estimate NORMAL Poikilocytosis 2+ Anisocytosis 1+ Microcytosis 1+ Sodium Level 147 H Potassium Level 3.6 Chloride Level 115 H Carbon Dioxide Level 27 Anion Gap 5 Blood Urea Nitrogen 22 H Creatinine 0.61 Est Glomerular Filtrat Rate mL/min Glucose Level 84 Calcium Level 8.3 L Phosphorus Level 1.6 L Magnesium Level 2.1 Procalcitonin 0.23 H Bedside Glucose 98 Medications Medication Current Medications IV Flush (NS 3 ml) 3 ml PER PROTOCOL IV ; Start 09/07/18 at 00:00 Ondansetron HCl (Zofran Inj) 4 mg Q6H PRN IV NAUSEA/VOMITING; Start 09/07/18 at 00:00 Heparin Sodium (Porcine) (Heparin (5000 Units/1ml)) 5,000 unit Q12 SC Last administered on 09/10/18 20:58; Admin Dose 5,000 UNIT; Start 09/07/18 at 09:00 Acetaminophen (Tylenol Tab) 650 mg Q4H PRN GTB MILD PAIN LEVEL 1-3; Start 09/07/18 at 00:00 Amlodipine Besylate (Norvasc) 10 mg DAILY GTB Last administered on 09/11/18 08:27; Admin Dose 10 MG; Start 09/07/18 at 09:00 Atorvastatin Calcium (Lipitor) 10 mg QHS GTB Last administered on 09/10/18 20:56; Admin Dose 10 MG; Start 09/07/18 at 21:00 Bisacodyl (Dulcolax Supp) 10 mg DAILY [place] Last administered on 09/08/18 09:29; Admin Dose 10 MG; Start 09/07/18 at 09:00; Status Hold Clonidine (Catapres) 0.1 mg Q8 PRN GTB FOR SBP>150 Last administered on 09/11/18 04:13; Admin Dose 0.1 MG; Start 09/07/18 at 00:00 Digoxin (Digoxin) 0.125 mg DAILY@1300 GTB Last administered on 09/10/18 14:23; Admin Dose 0.125 MG; Start 09/07/18 at 13:00 Docusate Sodium (Colace) 200 mg DAILY PO Last administered on 09/08/18 09:27; Admin Dose 200 MG; Start 09/07/18 at 09:00; Status Hold Ferrous Sulfate (Feosol Liquid Cup) 330 mg DAILY GTB Last administered on 09/11/18 08:28; Admin Dose 330 MG; Start 09/07/18 at 09:00 Insulin Glargine (Lantus) 10 units QAM SC Last administered on 09/11/18 08:37; Admin Dose 10 UNITS; Start 09/07/18 at 09:00 Latanoprost (Xalatan) 1 drop QHS BOTH EYES Last administered on 09/10/18 20:56; Admin Dose 1 DROP; Start 09/07/18 at 21:00 Magnesium Hydroxide (Milk Of Mag) 30 ml DAILY GTB Last administered on 09/08/18 09:26; Admin Dose 30 ML; Start 09/07/18 at 09:00; Status Hold Metoprolol Tartrate (Lopressor) 50 mg BID GTB Last administered on 09/11/18at 08:27; Admin Dose 50 MG; Start 09/07/18 at 09:00 Ondansetron HCl (Zofran Tab) 4 mg Q6H PRN GTB NAUSEA AND/OR VOMITING; Start 09/07/18 at 00:00 Lansoprazole (Prevacid) 30 mg DAILY@06 GTB Last administered on 09/11/18at 05:13; Admin Dose 30 MG; Start 09/07/18 at 06:00 Diagnostic Test (Pha) (Accu-Chek) 1 ea 02 XX Last administered on 09/09/18at 02:00; Admin Dose 1 EA; Start 09/08/18 at 02:00 Insulin Aspart (Novolog Insulin Pen) NOVOLOG *MILD* ALGORITHM WITH MEALS BEDTIME SC ; Start 09/07/18 at 11:30 Miscellaneous Information 1 ea NOTE XX ; Start 09/07/18 at 10:00 Glucose (Glutose) 15 gm Q15M PRN PO DECREASED GLUCOSE; Start 09/07/18 at 10:00 Glucose (Glutose) 22.5 gm Q15M PRN PO DECREASED GLUCOSE; Start 09/07/18 at 10:00 Dextrose (D50w Syringe) 25 ml Q15M PRN IV DECREASED GLUCOSE; Start 09/07/18 at 10:00 Dextrose (D50w Syringe) 50 ml Q15M PRN IV DECREASED GLUCOSE; Start 09/07/18 at 10:00 Glucagon (Glucagen) 1 mg Q15M PRN IM DECREASED GLUCOSE; Start 09/07/18 at 10:00 Glucose (Glutose) 15 gm Q15M PRN BUCCAL DECREASED GLUCOSE; Start 09/07/18 at 10: 00 Hydrocortisone (Hydrocortisone 1% Oint) 1 applic BID TOP Last administered on 09/11/18at 08:26; Admin Dose 1 APPLIC; Start 09/07/18 at 21:00 Fluconazole (Diflucan) 200 mg DAILY GTB Last administered on 09/11/18at 08:27; Admin Dose 200 MG; Start 09/10/18 at 09:00 Ampicillin Sodium/ Sulbactam Sodium 100 ml @ 100 mls/hr Q6 IVPB ; Start 09/11/18 at 12:00 Potassium Phosphate 30 mm/ Sodium Chloride 260 ml @ 65 mls/hr ONCE ONCE IVPB Last administered on 09/11/18at 10:43; Admin Dose 65 MLS/HR; Start 09/11/18 at 10:30; Stop 09/11/18 at 14:29 HAI STAFFORD Sep 11, 2018 10:52
[2018-09-11] MEDS: Insulin NOVOLOG SS MILD Algorithm (NPO/TPN/ENTERAL FEEDS) SC SCH ×2 (11:49→17:39)
[2018-09-11] MEDS ORDERED: INSULIN ASPART [NOVOLOG] 3 ML PEN SC SCH (12:00)
[2018-09-11] MEDS: DIGOXIN 0.125 MG TAB GTB SCH (12:58)
[2018-09-11] MEDS: AMPICILLIN/SULB 3 GM/NS (PMX) 100 ML IVPB SCH ×2 (13:08→17:33)
[2018-09-11] MEDS ORDERED: SOD CHLORIDE 0.9% 250 ML IV* ONE (17:21)
--- NOTE | 2018-09-11 17:33 | PN ---
Date/Time of Note Date/Time of Note DATE: 09/11/18 TIME: 17:21 Assessment/Plan VTE Prophylaxis Risk score (from Ns)>0 risk: 5 SCD applied (from Ns): Yes Pharmacological prophylaxis: NA/contraindicated Pharm contraindication: low risk/ambulating Lines/Catheters IV Catheter Type (from Nrsg): Mid Line Urinary Cath still in place: No Assessment/Plan Assessment/Plan 83 yo man with severe COPD, trach since May 2018, admitted with acute encephalopathy #UTI - Elevated temp but afebrile since admission, leukocytosis. - Blood cultures growing enterococcus. - Cont Unasyn #Acute encephalopathy - resolved - May have been due to high dose benadryl the night before; or urosepsis. - According to daughter he is mentally back to baseline now #Hematuria - May have had Terry trauma from frequent turning - Urine clearing up, discontinue Terry. 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 - Palliative care should be involved. # Diabetes: A1c was 5.6 - continue insulin while in-house # Anemia: Likely of chronic disease - Had recent EGD/Colonoscopy negative for GI source of bleed. - Transfuse to Hgb>7 - Antibodies to RBCs Dispo: Plan for discharge back to [facility] on Unasyn Result Diagram: 09/11/1824 09/11/18623 Subjective 24 Hr Interval Summary Free Text/Dictation Hgb drop today. Terry is out. Blood in urine is clearing up. Patient is still awake and alert. Tried to wean off vent, but patient not tolerating T-piece trial. Exam/Review of Systems Exam Vitals Vital Signs Date Temp Pulse Resp B/P (MAP) Pulse Ox O2 O2 Flow FiO2 Time Delivery Rate 09/11/18 98.0 66 18 152/70 100 16:05 (97) 09/11/18 30 11:18 09/11/18 Mechanical 04:00 Ventilator 09/10/18 8.0 13:44 Intake and Output 09/10/18 09/10/18 09/11/18 1515:00 23:00 07:00 IntakeIntake Total 150 ml 810 ml OutputOutput Total 700 ml BalanceBalance 150 ml 110 ml Exam General: Brazilian man lying in bed trached on vent; awake and alert. Head: Normocephalic, atraumatic. Eyes: Pupils equally reactive, EOM intact ENT: Moist mucous membranes. Neck: Supple, trach in place Respiratory: Mechanical breath sounds throughout, no wheezing or crackles. Cardiovascular: S1, S2 heard, no rubs, or gallops Abdominal: Soft, non-tender, non-distended, no peritoneal sign. G tube clean and dry. Neuro: Awake and alert, following complex commands. : Terry out. No blood at meatus. Results Results 24hrs Laboratory Tests Test 09/10/18 18:17 09/10/18 20:00 09/10/18 20:55 09/11/18 06:24 Bedside Glucose 104 96 Urine Color YELLOW Urine Clarity CLOUDY A Urine pH 5.0 Urine Specific 1.016 [place] Urine Ketones NEGATIVE Urine Nitrite NEGATIVE Urine Bilirubin NEGATIVE Urine Urobilinogen NEGATIVE Urine Leukocyte NEGATIVE Esterase Urine Microscopic > 182 H RBC Urine Microscopic 19 H WBC Urine Bacteria FEW A Urine Mucus FEW A Urine Hemoglobin 3+ H Urine Glucose NEGATIVE Urine Total Protein 3+ H White Blood Count 8.8 Red Blood Count 2.02 #L Hemoglobin 6.0 #*L Hematocrit 19.1 #L Mean Corpuscular 94.6 Volume Mean Corpuscular 29.7 Hemoglobin Mean Corpuscular 31.4 L Hemoglobin Concent Red Cell 15.4 H Distribution Width Platelet Count 300 # Mean Platelet Volume 11.4 H Immature 2.600 H Granulocytes % Neutrophils % Segmented 73 Neutrophils % (Manual) Band Neutrophils % 4 (Manual) Lymphocytes % Lymphocytes % 7 L (Manual) Monocytes % Monocytes % (Manual) 10 Eosinophils % Eosinophils % 1 (Manual) Basophils % Basophils % (Manual) 1 Metamyelocytes % 1 H (manual) Myelocytes % 2 H (Manual) Promyelocytes % 1 H (Manual) Nucleated Red Blood 0.0 Cells % Immature 0.230 H Granulocytes # Neutrophils # Neutrophils # 6.5 (Manual) Band Neutrophils # 0.3 Lymphocytes (Manual) 0.6 L Lymphocytes # Monocytes # Monocytes # (Manual) 0.8 Eosinophils # Basophils # Basophils # (Manual) 0.0 Metamyelocytes # 0.0 Myelocytes # 0.1 H Promyelocytes # 0.0 Nucleated Red Blood Cells # Pathologist NO Review (Hematology) Platelet Estimate NORMAL Poikilocytosis 2+ Anisocytosis 1+ Microcytosis 1+ Sodium Level 147 H Potassium Level 3.6 Chloride Level 115 H Carbon Dioxide Level 27 Anion Gap 5 Blood Urea Nitrogen 22 H Creatinine 0.61 Est Glomerular Filtrat Rate mL/min Glucose Level 84 Calcium Level 8.3 L Phosphorus Level 1.6 L Magnesium Level 2.1 Procalcitonin 0.23 H Test 09/11/18 07:56 09/11/18 11:47 Bedside Glucose 98 81 Medications Medication Current Medications IV Flush (NS 3 ml) 3 ml PER PROTOCOL IV ; Start 09/07/18 at 00:00 Ondansetron HCl (Zofran Inj) 4 mg Q6H PRN IV NAUSEA/VOMITING; Start 09/07/18 at 00:00 Acetaminophen (Tylenol Tab) 650 mg Q4H PRN GTB MILD PAIN LEVEL 1-3; Start 09/07/18 at 00:00 Amlodipine Besylate (Norvasc) 10 mg DAILY GTB Last administered on 09/11/18at 08:27; Admin Dose 10 MG; Start 09/07/18 at 09:00 Atorvastatin Calcium (Lipitor) 10 mg QHS GTB Last administered on 09/10/18at 20:56; Admin Dose 10 MG; Start 09/07/18 at 21:00 Bisacodyl (Dulcolax Supp) 10 mg DAILY [place] Last administered on 09/08/18 09:29; Admin Dose 10 MG; Start 09/07/18 at 09:00; Status Hold Clonidine (Catapres) 0.1 mg Q8 PRN GTB FOR SBP>150 Last administered on 09/11/18 04:13; Admin Dose 0.1 MG; Start 09/07/18 at 00:00 Digoxin (Digoxin) 0.125 mg DAILY@1300 GTB Last administered on 09/11/18 12:58; Admin Dose 0.125 MG; Start 09/07/18 at 13:00 Docusate Sodium (Colace) 200 mg DAILY PO Last administered on 09/08/18 09:27; Admin Dose 200 MG; Start 09/07/18 at 09:00; Status Hold Ferrous Sulfate (Feosol Liquid Cup) 330 mg DAILY GTB Last administered on 09/11/18 08:28; Admin Dose 330 MG; Start 09/07/18 at 09:00 Insulin Glargine (Lantus) 10 units QAM SC Last administered on 09/11/18at 08:37; Admin Dose 10 UNITS; Start 09/07/18 at 09:00 Latanoprost (Xalatan) 1 drop QHS BOTH EYES Last administered on 09/10/18at 20:56; Admin Dose 1 DROP; Start 09/07/18 at 21:00 Magnesium Hydroxide (Milk Of Mag) 30 ml DAILY GTB Last administered on 09/08/18 09:26; Admin Dose 30 ML; Start 09/07/18 at 09:00; Status Hold Metoprolol Tartrate (Lopressor) 50 mg BID GTB Last administered on 09/11/18 08:27; Admin Dose 50 MG; Start 09/07/18 at 09:00 Ondansetron HCl (Zofran Tab) 4 mg Q6H PRN GTB NAUSEA AND/OR VOMITING; Start 09/07/18 at 00:00 Lansoprazole (Prevacid) 30 mg DAILY@06 GTB Last administered on 09/11/18at 05:13; Admin Dose 30 MG; Start 09/07/18 at 06:00 Diagnostic Test (Pha) (Accu-Chek) 1 ea 02 XX Last administered on 09/09/18at 02:00; Admin Dose 1 EA; Start 09/08/18 at 02:00 Miscellaneous Information 1 ea NOTE XX ; Start 09/07/18 at 10:00 Glucose (Glutose) 15 gm Q15M PRN PO DECREASED GLUCOSE; Start 09/07/18 at 10:00 Glucose (Glutose) 22.5 gm Q15M PRN PO DECREASED GLUCOSE; Start 09/07/18 at 10:00 Dextrose (D50w Syringe) 25 ml Q15M PRN IV DECREASED GLUCOSE; Start 09/07/18 at 10:00 Dextrose (D50w Syringe) 50 ml Q15M PRN IV DECREASED GLUCOSE; Start 09/07/18 at 10:00 Glucagon (Glucagen) 1 mg Q15M PRN IM DECREASED GLUCOSE; Start 09/07/18 at 10:00 Glucose (Glutose) 15 gm Q15M PRN BUCCAL DECREASED GLUCOSE; Start 09/07/18 at 10:00 Hydrocortisone (Hydrocortisone 1% Oint) 1 applic BID TOP Last administered on 09/11/18at 08:26; Admin Dose 1 APPLIC; Start 09/07/18 at 21:00 Fluconazole (Diflucan) 200 mg DAILY GTB Last administered on 09/11/18at 08:27; Admin Dose 200 MG; Start 09/10/18 at 09:00 Ampicillin Sodium/ Sulbactam Sodium 100 ml @ 100 mls/hr Q6 IVPB Last administered on 09/11/18at 13:08; Admin Dose 100 MLS/HR; Start 09/11/18 at 12:00 Insulin Aspart (Novolog Insulin Pen) (Adult SC Insulin - Mild Algorithm)... Q6 SC ; Start 09/11/18 at 12:00 Nystatin (Nystatin Powder) 1 applic DAILY TOP ; Start 09/12/18 at 09:00 CARLEEN MARQUEZ MD Sep 11, 2018 17:32
[2018-09-11] MEDS: ATORVASTATIN 10 MG TAB GTB SCH (20:18)
[2018-09-11] MEDS: LATANOPROST 0.005% 2.5 ML OPH BOTH EYES SCH (20:19)
[2018-09-12] VITALS (19 sets, daily range): BP systolic 158–185; BP diastolic 67–79; PULSE 69–88; RESP 14–23
[2018-09-12] MEDS: AMPICILLIN/SULB 3 GM/NS (PMX) 100 ML IVPB SCH ×2 (00:06→05:29)
[2018-09-12] MEDS: ACCU-CHEK XX SCH (02:00)
[2018-09-12] MEDS ORDERED: NITROGLYCERIN (SL) 0.4 MG TAB SL PRN (05:00)
[2018-09-12] MEDS ORDERED: ONDANSETRON 4 MG INJ IV PRN (05:00)
[2018-09-12] MEDS ORDERED: ACETAMINOPHEN 325 MG TAB PO PRN (05:00)
[2018-09-12] MEDS: LANSOPRAZOLE 30 MG CAP GTB SCH (05:26)
[2018-09-12] MEDS: Insulin NOVOLOG SS MILD Algorithm (NPO/TPN/ENTERAL FEEDS) SC SCH ×4 (05:28→17:25)
--- NOTE | 2018-09-12 07:04 | CONS ---
Assessment/Plan Assessment/Plan Hospital Course (Demo Recall) 1) enterococcal bacteremia pt only got one dose of vanco but his WBC and fever have improved start oral zyvox until sensi's are known repeat blood cx has been ordered he does have some open shallow wounds in sacral area but no obvious cellulitis will check procalcitonin 09/11 - procalcitonin was neg yesterday, likely the enterococcal (not VRE) bacteremia was transient d/c zyvox and change zosyn to unasyn repeat blood cx is NGTD 09/12 - repeat blood cx remain NGTD d/c unasyn and start augmentin and continue for 8 days (thru 09/19) 2) [address] pl effusions get sputum cx change cefepime to zosyn and check procalcitonin no obvious bronchograms are seen on lower lobes on CT abd 09/11 - neg procalcitonin makes bacterial pneumonia unlikely d/c zosyn and start unasyn 09/12 - procalcitonin remains low, to repeat this a.m. he has pseudomonas MDRO in sputum but this is likely colonization and does not need treatment 3) funguria with pyuria start diflucan via g-tube and repeat u/a and urine cx sometimes bacterial infection will not be detected if pt has overgrowth of yeast 09/11 - pt has hematuria and some pyuria still on oral diflucan and if repeat urine cx is neg then will d/c diflucan, otherwise 5 day course should be sufficient 09/12 - on diflucan po continue theu 09/14 4) COPD and vent dependent 5) DM 6) anemia 09/11 - Hgb was 6.0 this a.m., likely needs repeat as pt does not have symptoms of severe anemia 09/12 - pt getting blood tx currently Consultation Date/Type/Reason Admit Date/Time Sep 06, 2018 at 19:37 Initial Consult Date 09/10/18 Type of Consult ID Date/Time of Note DATE: 09/12/18 TIME: 06:58 24 HR Interval Summary Free Text/Dictation doing well, spoke to nurse but he is confused and pulls on tubes no diarrhea, vomiting tolerating tube feeds Exam/Review of Systems Exam Vitals Vital Signs Date Temp Pulse Resp B/P (MAP) Pulse Ox O2 O2 Flow FiO2 Time Delivery Rate 09/12/18 83 17 99 30 05:25 7/12/19 98.2 174/74 04:27 (107) 09/11/18 Mechanical 04:00 Ventilator 09/10/18 8.0 13:44 Intake and Output 09/11/18 09/11/18 09/12/18 1515:00 23:00 07:00 IntakeIntake Total 360 ml 730 ml 880 ml BalanceBalance 360 ml 730 ml 880 ml Constitutional: alert Eyes: nl sclera ENMT: mucosa pink and moist Respiratory: other (valdemar coarse rhonchi) Cardiovascular: regular rate and rhythm Gastrointestinal: soft, non-tender Results Result Diagram: 09/11/18 0624 09/11/18 0624 Results 24hrs Laboratory Tests Test 09/11/18 07:56 09/11/18 11:47 09/11/18 17:30 09/11/18 17:50 Bedside Glucose 98 81 68 L 131 Test 09/12/18 00:14 09/12/18 05:28 Bedside Glucose 79 95 Medications Medication Current Medications IV Flush (NS 3 ml) 3 ml PER PROTOCOL IV ; Start 09/07/18 at 00:00 Ondansetron HCl (Zofran Inj) 4 mg Q6H PRN IV NAUSEA/VOMITING; Start 09/07/18 at 00:00 Acetaminophen (Tylenol Tab) 650 mg Q4H PRN GTB MILD PAIN LEVEL 1-3; Start 09/07/18 at 00:00 Amlodipine Besylate (Norvasc) 10 mg DAILY GTB Last administered on 09/11/18at 08:27; Admin Dose 10 MG; Start 09/07/18 at 09:00 Atorvastatin Calcium (Lipitor) 10 mg QHS GTB Last administered on 09/11/18at 20:18; Admin Dose 10 MG; Start 09/07/18 at 21:00 Bisacodyl (Dulcolax Supp) 10 mg DAILY [place] Last administered on 09/08/18at 09:29; Admin Dose 10 MG; Start 09/07/18 at 09:00; Status Hold Clonidine (Catapres) 0.1 mg Q8 PRN GTB FOR SBP>150 Last administered on 09/12/18at 05:46; Admin Dose 0.1 MG; Start 09/07/18 at 00:00 Digoxin (Digoxin) 0.125 mg DAILY@1300 GTB Last administered on 09/11/18at 12:58; Admin Dose 0.125 MG; Start 09/07/18 at 13:00 Docusate Sodium (Colace) 200 mg DAILY PO Last administered on 09/08/18 09:27; Admin Dose 200 MG; Start 09/07/18 at 09:00; Status Hold Ferrous Sulfate (Feosol Liquid Cup) 330 mg DAILY GTB Last administered on 09/11/18 08:28; Admin Dose 330 MG; Start 09/07/18 at 09:00 Latanoprost (Xalatan) 1 drop QHS BOTH EYES Last administered on 09/11/18 20:19; Admin Dose 1 DROP; Start 09/07/18 at 21:00 Magnesium Hydroxide (Milk Of Mag) 30 ml DAILY GTB Last administered on 09/08/18 09:26; Admin Dose 30 ML; Start 09/07/18 at 09:00; Status Hold Metoprolol Tartrate (Lopressor) 50 mg BID GTB Last administered on 09/11/18 20:19; Admin Dose 50 MG; Start 09/07/18 at 09:00 Ondansetron HCl (Zofran Tab) 4 mg Q6H PRN GTB NAUSEA AND/OR VOMITING; Start 09/07/18 at 00:00 Lansoprazole (Prevacid) 30 mg DAILY@06 GTB Last administered on 09/12/18at 05:26; Admin Dose 30 MG; Start 09/07/18 at 06:00 Diagnostic Test (Pha) (Accu-Chek) 1 ea 02 XX Last administered on 09/09/18at 02 :00; Admin Dose 1 EA; Start 09/08/18 at 02:00 Miscellaneous Information 1 ea NOTE XX ; Start 09/07/18 at 10:00 Glucose (Glutose) 15 gm Q15M PRN PO DECREASED GLUCOSE; Start 09/07/18 at 10:00 Glucose (Glutose) 22.5 gm Q15M PRN PO DECREASED GLUCOSE; Start 09/07/18 at 10:00 Dextrose (D50w Syringe) 25 ml Q15M PRN IV DECREASED GLUCOSE Last administered on 09/11/18at 17:36; Admin Dose 25 ML; Start 09/07/18 at 10:00 Dextrose (D50w Syringe) 50 ml Q15M PRN IV DECREASED GLUCOSE; Start 09/07/18 at 10:00 Glucagon (Glucagen) 1 mg Q15M PRN IM DECREASED GLUCOSE; Start 09/07/18 at 10:00 Glucose (Glutose) 15 gm Q15M PRN BUCCAL DECREASED GLUCOSE; Start 09/07/18 at 10:00 Hydrocortisone (Hydrocortisone 1% Oint) 1 applic BID TOP Last administered on 09/11/18at 20:20; Admin Dose 1 APPLIC; Start 09/07/18 at 21:00 Fluconazole (Diflucan) 200 mg DAILY GTB Last administered on 09/11/18at 08:27; Admin Dose 200 MG; Start 09/10/18 at 09:00 Ampicillin Sodium/ Sulbactam Sodium 100 ml @ 100 mls/hr Q6 IVPB Last administered on 09/12/18at 05:29; Admin Dose 100 MLS/HR; Start 09/11/18 at 12:00 Insulin Aspart (Novolog Insulin Pen) (Adult SC Insulin - Mild Algorithm)... Q6 [place] ; Start 09/11/18 at 12:00 Nystatin (Nystatin Powder) 1 applic DAILY TOP ; Start 09/12/18 at 09:00 BRITTANI GARCIA MD Sep 12, 2018 07:04
[2018-09-12] MEDS: HYDROCORTISONE 1% 28.35 GM OINT TOP SCH ×2 (08:11→20:25)
[2018-09-12] MEDS: METOPROLOL 50 MG TAB GTB SCH ×2 (08:12→20:24)
[2018-09-12] MEDS: FERROUS SULFATE 60 MG/ML 5ML CUP GTB SCH (08:12)
[2018-09-12] MEDS: AMLODIPINE 10 MG TAB GTB SCH (08:13)
[2018-09-12] MEDS: FLUCONAZOLE 200 MG TAB GTB SCH (08:13)
[2018-09-12] MEDS: AMOXICILLIN/CLAV 875 MG TAB GTB SCH ×2 (08:13→20:24)
[2018-09-12] MEDS ORDERED: POVIDONE IODINE 10% 28.4 GM OINT TOP SCH (09:00)
[2018-09-12] MEDS ORDERED: ASPIRIN 81 MG TAB PO SCH (09:00)
[2018-09-12] MEDS ORDERED: NYSTATIN 30 GM POWDER BTL TOP SCH (09:00)
[2018-09-12] MEDS ORDERED: BALSAM PERU/CASTOR OIL 60 GM TUBE TOP SCH (09:00)
[2018-09-12] MEDS ORDERED: LISINOPRIL 10 MG TAB GTB SCH (10:00)
--- NOTE | 2018-09-12 11:10 | CONS ---
Consultation Date/Type/Reason Admit Date/Time Sep 06, 2018 at 19:37 Initial Consult Date Type of Consult Pulmonary/critical care Patient condition is markedly improved. Patient is completely awake and alert. General exam; elderly male, on ventilator via tracheostomy, awake and alert. Currently in no distress. Date/Time of Note DATE: 09/12/18 TIME: 11:07 24 HR Interval Summary Free Text/Dictation Patient's condition remains stable. Remains awake and alert. Has remained hemodynamically stable. General exam; elderly male, on ventilator via tracheostomy. Currently in no distress. H ENT exam; supple neck, no JVD. No lymphadenopathy. Midline trachea. No thyromegaly. Patient has dentures in place. Tracheostomy in place. Chest exam; diminished but clear breath sounds. S1-S2 audible, no murmurs. Regular rhythm. Abdomen exam; soft, no organomegaly. G-tube in place. Bowel sounds audible. No organomegaly. Nontender. Extremity exam; no peripheral edema clubbing. 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 Ventilator setting; reviewed. Assessment and recommendations; 1. Patient with history of VDRF admitted for enterococcus bacteremia with acute encephalopathy with marked overall interval improvement. 2. Candiduria. 3. History of diabetes and hypertension. 4. History of cardiac arrhythmia. 5. Severe anemia. Possibly acute. No overt bleeding noted though. Continue current supportive care. Repeat CBC. Further recommendations once CBC is obtained. Antibiotics per ID recommendations. CBC. Exam/Review of Systems Exam Vitals Vital Signs Date Temp Pulse Resp B/P (MAP) Pulse Ox O2 O2 Flow FiO2 Time Delivery Rate 09/12/18 98.7 72 18 185/79 97 Nasal 07:44 (114) Cannula 09/12/18 30 07:42 09/10/18 8.0 13:44 Intake and Output 09/11/18 09/11/18 09/12/18 1515:00 23:00 07:00 IntakeIntake Total 360 ml 730 ml 880 ml BalanceBalance 360 ml 730 ml 880 ml Results Result Diagram: 09/11/18 0624 09/11/18 0624 Results 24hrs Laboratory Tests Test 09/11/18 11:47 09/11/18 17:30 09/11/18 17:50 09/12/18 00:14 Bedside Glucose 81 68 L 131 79 Test 09/12/18 05:28 Bedside Glucose 95 Medications Medication Current Medications IV Flush (NS 3 ml) 3 ml PER PROTOCOL IV ; Start 09/07/18 at 00:00 Ondansetron HCl (Zofran Inj) 4 mg Q6H PRN IV NAUSEA/VOMITING; Start 09/07/18 at 00:00 Acetaminophen (Tylenol Tab) 650 mg Q4H PRN GTB MILD PAIN LEVEL 1-3; Start 09/07/18 at 00:00 Amlodipine Besylate (Norvasc) 10 mg DAILY GTB Last administered on 09/12/18 08:13; Admin Dose 10 MG; Start 09/07/18 at 09:00 Atorvastatin Calcium (Lipitor) 10 mg QHS GTB Last administered on 09/11/18 20:18; Admin Dose 10 MG; Start 09/07/18 at 21:00 Bisacodyl (Dulcolax Supp) 10 mg DAILY NV Last administered on 09/08/18 09:29; Admin Dose 10 MG; Start 09/07/18 at 09:00; Status Hold Clonidine (Catapres) 0.1 mg Q8 PRN GTB FOR SBP>150 Last administered on 09/12/18 05:46; Admin Dose 0.1 MG; Start 09/07/18 at 00:00 Digoxin (Digoxin) 0.125 mg DAILY@1300 GTB Last administered on 09/11/18 12:58; Admin Dose 0.125 MG; Start 09/07/18 at 13:00 Docusate Sodium (Colace) 200 mg DAILY PO Last administered on 09/08/18 09:27; Admin Dose 200 MG; Start 09/07/18 at 09:00; Status Hold Ferrous Sulfate (Feosol Liquid Cup) 330 mg DAILY GTB Last administered on 09/12/18 08:12; Admin Dose 330 MG; Start 09/07/18 at 09:00 Latanoprost (Xalatan) 1 drop QHS BOTH EYES Last administered on 09/11/18 20:19; Admin Dose 1 DROP; Start 09/07/18 at 21:00 Magnesium Hydroxide (Milk Of Mag) 30 ml DAILY GTB Last administered on 09/08/18 09:26; Admin Dose 30 ML; Start 09/07/18 at 09:00; Status Hold Metoprolol Tartrate (Lopressor) 50 mg BID GTB Last administered on 09/12/18at 08:12; Admin Dose 50 MG; Start 09/07/18 at 09:00 Ondansetron HCl (Zofran Tab) 4 mg Q6H PRN GTB NAUSEA AND/OR VOMITING; Start 09/07/18 at 00:00 Lansoprazole (Prevacid) 30 mg DAILY@06 GTB Last administered on 09/12/18at 05:26; Admin Dose 30 MG; Start 09/07/18 at 06:00 Diagnostic Test (Pha) (Accu-Chek) 1 ea 02 XX Last administered on 09/09/18at 02:00; Admin Dose 1 EA; Start 09/08/18 at 02:00 Miscellaneous Information 1 ea NOTE XX ; Start 09/07/18 at 10:00 Glucose (Glutose) 15 gm Q15M PRN PO DECREASED GLUCOSE; Start 09/07/18 at 10:00 Glucose (Glutose) 22.5 gm Q15M PRN PO DECREASED GLUCOSE; Start 09/07/18 at 10:00 Dextrose (D50w Syringe) 25 ml Q15M PRN IV DECREASED GLUCOSE Last administered on 09/11/18at 17:36; Admin Dose 25 ML; Start 09/07/18 at 10:00 Dextrose (D50w Syringe) 50 ml Q15M PRN IV DECREASED GLUCOSE; Start 09/07/18 at 10:00 Glucagon (Glucagen) 1 mg Q15M PRN IM DECREASED GLUCOSE; Start 09/07/18 at 10:00 Glucose (Glutose) 15 gm Q15M PRN BUCCAL DECREASED GLUCOSE; Start 09/07/18 at 10:00 Hydrocortisone (Hydrocortisone 1% Oint) 1 applic BID TOP Last administered on 09/12/18at 08:11; Admin Dose 1 APPLIC; Start 09/07/18 at 21:00 Fluconazole (Diflucan) 200 mg DAILY GTB Last administered on 09/12/18at 08:13; Admin Dose 200 MG; Start 09/10/18 at 09:00 Insulin Aspart (Novolog Insulin Pen) (Adult SC Insulin - Mild Algorithm)... Q6 SC ; Start 09/11/18 at 12:00 Nystatin (Nystatin Powder) 1 applic DAILY TOP Last administered on 09/12/18at 08:11; Admin Dose 1 APPLIC; Start 09/12/18 at 09:00 Amoxicillin/ Clavulanate Potassium (Augmentin) 875 mg BID GTB Last administered on 09/12/18at 08:13; Admin Dose 875 MG; Start 09/12/18 at 09:00 Lisinopril (Zestril) 10 mg DAILY GTB Last administered on 09/12/18at 10:22; Admin Dose 10 MG; Start 09/12/18 at 10:00 HAI STAFFORD Sep 12, 2018 11:10
[2018-09-12] MEDS: DIGOXIN 0.125 MG TAB GTB SCH (12:11)
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
[2018-09-12] MEDS: LATANOPROST 0.005% 2.5 ML OPH BOTH EYES SCH (20:20)
[2018-09-12] MEDS: ATORVASTATIN 10 MG TAB GTB SCH (20:20)
== END 2018-09-12 22:25 | DRG 870 ==
LOC: E/R 15:27 → ICU 19:37 → TEL 09-09 12:00
PROVIDERS: ADMIT Internal Medicine; ATTEND Internal Medicine
PROC: 5A1955Z Respiratory Ventilation, Greater than 96 Consecutive Hours (ICD-10-PCS; 2018-09-07)
PROC: 30233N1 Transfusion of Nonautologous Red Blood Cells into Peripheral Vein, Percutaneous Approach (ICD-10-PCS; principal; 2018-09-12)
DX: A41.9 Sepsis, unspecified organism (principal); G93.41 Metabolic encephalopathy; Z99.11 Dependence on respirator [ventilator] status; G93.40 Encephalopathy, unspecified; J90 Pleural effusion, not elsewhere classified; J96.10 Chronic respiratory failure, unspecified whether with hypoxia or hypercapnia; N39.0 Urinary tract infection, site not specified; L89.152 Pressure ulcer of sacral region, stage 2; E11.22 Type 2 diabetes mellitus with diabetic chronic kidney disease; Z93.0 Tracheostomy status; L89.621 Pressure ulcer of left heel, stage 1; L89.611 Pressure ulcer of right heel, stage 1; L89.892 Pressure ulcer of other site, stage 2; J44.9 Chronic obstructive pulmonary disease, unspecified; R31.9 Hematuria, unspecified; Z93.1 Gastrostomy status; R13.10 Dysphagia, unspecified; D63.8 Anemia in other chronic diseases classified elsewhere; I12.9 Hypertensive chronic kidney disease with stage 1 through stage 4 chronic kidney disease, or unspecified chronic kidney disease; N18.9 Chronic kidney disease, unspecified; Z79.4 Long term (current) use of insulin; B37.9 Candidiasis, unspecified; B96.5 Pseudomonas (aeruginosa) (mallei) (pseudomallei) as the cause of diseases classified elsewhere; B95.2 Enterococcus as the cause of diseases classified elsewhere
CPT/HCPCS: 36415; 36430; 70450; 71045; 74176; 80048; 80053; 80061; 81001; 82270; 82728; 82962; 83036; 83540; 83605; 83735; 84100; 84145; 84443; 84484; 85025; 85610; 85730; 86850; 86870; 86900; 86901; 86920; 87045; 87070; 87081; 87086; 93005; 94002; 94003; 94770; 96374; 96375; J0295; J0692; J0696; J1644; J1815; J2543; J3370; J7030; J7040; J7050; P9016